=== PATIENT | female | born 1980 | race Asian ===

== ENCOUNTER 2019-11-16 20:14 | Outpatient (CLI) | payer SELFPAY | END 2019-11-16 23:59 | disposition critical access hospital (66) | LOC: EMS 20:14 | PROVIDERS: ATTEND Surgery | DX: S09.93XA Unspecified injury of face, initial encounter (principal); M54.2 Cervicalgia; Y04.2XXA Assault by strike against or bumped into by another person, initial encounter; Z72.89 Other problems related to lifestyle | CPT/HCPCS: A0425; A0429 ==

== ENCOUNTER 2019-11-16 20:51 | Emergency (ER) | payer SELFPAY ==
[2019-11-16 21:07] VITALS: BP 166/128
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
== END 2019-11-17 00:37 | disposition home or self-care (01) ==
LOC: ED 20:51
DX: T76.11XA Adult physical abuse, suspected, initial encounter (principal); S06.9X9A Unspecified intracranial injury with loss of consciousness of unspecified duration, initial encounter; S00.83XA Contusion of other part of head, initial encounter; S00.81XA Abrasion of other part of head, initial encounter; Y04.2XXA Assault by strike against or bumped into by another person, initial encounter; Y92.009 Unspecified place in unspecified non-institutional (private) residence as the place of occurrence of the external cause; F10.929 Alcohol use, unspecified with intoxication, unspecified; M50.322 Other cervical disc degeneration at C5-C6 level
CPT/HCPCS: 70450; 72125; 99283; 99284

== ENCOUNTER 2021-04-14 09:06 | Day surgery (SDC) | payer OTHER ==
[2021-04-14 09:51] LABS: BASOPHILS # (AUTO) 0.1 10^3/uL (0.0-0.1); BASOPHILS % (AUTO) 0.3 %; EOSINOPHILS % (AUTO) 0.1 %; HCT - HEMATOCRIT 41.2 % (37.0-47.0); HGB - HEMOGLOBIN 13.7 g/dL (12.0-16.0); LYMPHOCYTES # (AUTO) 0.7 10^3/uL (1.5-3.5); MEAN CORPUSCULAR HGB CONC 33.3 g/dL (32.0-36.0); MEAN CORPUSCULAR VOLUME 96.3 fL (81.0-99.0); MEAN PLATELET VOLUME 9.2 fL (7.9-10.8); MONOCYTES # (AUTO) 0.7 10^3/uL (0.0-1.0); MONOCYTES % (AUTO) 3.7 %; NEUTROPHILS # (AUTO) 16.7 10^3/uL (1.5-6.6); NEUTROPHILS % (AUTO) 91.4 %; PLT - PLATELET COUNT 314 10^3/uL (130-450); RED BLOOD COUNT 4.28 10^6/uL (4.20-5.40); RED CELL DISTRIBUTION WIDTH 12.9 % (12.0-15.0); WHITE BLOOD COUNT 18.3 x10^3/uL (4.8-10.8)
[2021-04-14 10:05] LABS: ALBUMIN 4.4 g/dL (3.2-5.5); ALBUMIN/GLOBULIN RATIO 1.2 (1.0-2.2); BILIRUBIN,TOTAL 1.2 mg/dL (0.2-1.0); CALCIUM 9.2 mg/dL (8.5-10.3); CREATININE 0.5 mg/dL (0.4-1.0); POTASSIUM 3.7 mmol/L (3.5-5.0); TOTAL PROTEIN 8.1 g/dL (6.7-8.2)
[2021-04-14 10:35] LABS: BILIRUBIN,URINE NEGATIVE (NEGATIVE); GLUCOSE, URINE (UA) NEGATIVE (NEGATIVE); KETONES,URINE (UA) NEGATIVE (NEGATIVE); LEUKOCYTE ESTERASE, URINE NEGATIVE (NEGATIVE); NITRITE,URINE NEGATIVE (NEGATIVE); OCCULT BLOOD,URINE NEGATIVE (NEGATIVE); PROTEIN,URINE NEGATIVE (NEGATIVE); UROBILINOGEN,URINE 0.2 (NORMAL) E.U./dL (NORMAL)
[2021-04-14 10:36] LABS: CLARITY,URINE CLEAR (CLEAR); HCG UR QUAL NEGATIVE
--- NOTE | 2021-04-14 10:45 | ED Physician Documentation ---
PD HPI ABD PAIN - Stated complaint Stated Complaint: ABD PX,VOMITING,DIZZY - Chief complaint Chief Complaint: Abd Pain - History obtained from History obtained from: Patient - History of Present Illness Timing - onset: Last night (onset about 2:30 of mid to upper abd pain with nausea and some vomiting. Mild loose stool.) Timing - duration: Hours (7) Timing - details: Gradual onset, Still present Quality: Cramping, Aching, Pain Location: Epigastric, Periumbilical Radiation: Lower back. No: Chest, Left flank, Right flank Improved by: No: Vomiting Worsened by: Eating, Position (walking hurts more). No: Breathing, Palpation Associated symptoms: Nausea, Vomiting (couple times). No: Fever, Diarrhea (but loose BM this morning), Constipation Similar symptoms before: Has not had sx before Recently seen: Not recently seen Review of Systems Constitutional: denies: Fever, Chills Nose: denies: Rhinorrhea / runny nose, Congestion Throat: denies: Sore throat Respiratory: denies: Cough GI: reports: Abdominal Pain, Nausea. denies: Abdominal Swelling, Constipation : denies: Dysuria, Frequency, Discharge Skin: denies: Rash, Lesions PD PAST MEDICAL HISTORY - Past Medical History Cardiovascular: None Respiratory: None Neuro: None Endocrine/Autoimmune: None - Past Surgical History Past Surgical History: No - Present Medications Home Medications: Ambulatory Orders Medication Instructions Recorded Confirmed No Known Home Medications 04/14/21 04/14/21 - Allergies Allergies/Adverse Reactions: Allergies Allergy/AdvReac Type Severity Reaction Status Date / Time No Known Drug Allergies Allergy Verified 04/14/21 09:27 - Social History Does the pt smoke?: No Smoking Status: Never smoker PD ED PE NORMAL - Vitals Vital signs reviewed: Yes - General General: Alert and oriented X 3, Well developed/nourished - Neck Neck: Supple, no meningeal sign, No adenopathy - Cardiac Cardiac: RRR, No murmur - Respiratory Respiratory: Clear bilaterally - Abdomen Abdomen: Normal bowel sounds, Soft, Non distended, No organomegaly, Other (There is tenderness in the supraumbilical to epigastric area. Mild tenderness in the right upper quadrant. Lower abdomen is actually not tender. No percussion or rebound tenderness) - Female Female : Deferred - Rectal Rectal: Deferred - Back Back: No CVA TTP - Derm Derm: Normal color, Warm and dry - Neuro Neuro: Alert and oriented X 3, No motor deficit, Normal speech Results - Vitals Vitals: Vital Signs - 24 hr 04/14/21 04/14/21 04/14/21 09:18 11:12 11:57 Temperature 37.2 C 37.2 C 36.8 C Heart Rate 80 83 80 Respiratory 16 16 18 Rate Blood Pressure 139/96 H 128/87 H 105/72 O2 Saturation 100 100 100 04/14/21 04/14/21 12:53 13:54 Temperature 36 C L Heart Rate 90 74 Respiratory 16 16 Rate Blood Pressure 140/94 H O2 Saturation 95 100 Oxygen O2 Source Room air - Labs Labs: Laboratory Tests 04/14/21 04/14/21 04/14/21 09:41 09:41 10:22 WBC 18.3 H RBC 4.28 Hgb 13.7 Hct 41.2 MCV 96.3 MCH 32.0 H MCHC 33.3 RDW 12.9 Plt Count 314 MPV 9.2 Neut # (Auto) 16.7 H Lymph # (Auto) 0.7 L [place] # (Auto) 0.7 Eos # (Auto) 0.0 Baso # (Auto) 0.1 Absolute Nucleated RBC 0.00 Nucleated RBC % 0.0 Sodium 134 L Potassium 3.7 Chloride 100 L Carbon Dioxide 24 Anion Gap 10.0 BUN 9 Creatinine 0.5 Estimated GFR (MDRD) 137 Glucose 125 H Calcium 9.2 Total Bilirubin 1.2 H AST 17 ALT 13 Alkaline Phosphatase 43 Total Protein 8.1 Albumin 4.4 Globulin 3.7 Albumin/Globulin Ratio 1.2 Lipase 25 Urine Color YELLOW Urine Clarity CLEAR Urine pH 6.0 Ur Specific [place] 1.025 Urine Protein NEGATIVE Urine Glucose (UA) NEGATIVE Urine Ketones NEGATIVE Urine Occult Blood NEGATIVE Urine Nitrite NEGATIVE Urine Bilirubin NEGATIVE Urine Urobilinogen 0.2 (NORMAL) Ur Leukocyte Esterase NEGATIVE Ur Microscopic Review NOT INDICATED Urine Culture Comments NOT INDICATED Urine HCG, Qual NEGATIVE - Rads (name of study) abd U/S Radiology: Prelim report reviewed (Gallstones without any signs of cholecystitis.), See rad report abd CT Radiology: Prelim report reviewed (Enlarged appendix with multiple appendicoliths. No signs of abscess.), See rad report PD MEDICAL DECISION MAKING - ED course Complexity details: reviewed results, re-evaluated patient (Still having pain that seems more supraumbilical at this time. White count is elevated at 18,000. Ultrasound did not show any gallbladder cholecystitis (some gallstones incidental). Will check CT scan.), considered differential (Pain and tenderness in the mid to upper abdomen mostly. Will check initially gallbladder and pancre as. Consider gastritis.), d/w patient Departure - Departure Disposition: ED Transfer to [facility] Clinical Impression: Acute appendicitis Qualifiers: Acute appendicitis type: unspecified acute appendicitis type Qualified Code(s): K35.80 - Unspecified acute appendicitis Abdominal pain Qualifiers: Abdominal location: upper abdomen, unspecified Qualified Code(s): R10.10 - Upper abdominal pain, unspecified Condition: Stable Record reviewed to determine appropriate education?: Yes
[2021-04-14] MEDS ORDERED: FAMOTIDINE 20 MG/2 ML VIAL IVP STA (11:02)
[2021-04-14] MEDS ORDERED: SODIUM CHLORIDE 0.9% 1,000 ML IV STA ×2 (11:02→13:50)
[2021-04-14] MEDS ORDERED: ONDANSETRON 4 MG/2 ML VIAL IVP STA (11:02)
[2021-04-14] MEDS ORDERED: HYDROmorphone 1 MG/ML CARPUJECT IVP STA ×3 (11:02→13:50)
--- NOTE | 2021-04-14 12:01 | Ultrasound Report ---
PROCEDURE: Abdomen Limited INDICATIONS: upper abd pain and vomiting TECHNIQUE: Real-time focused scanning was performed of the abdomen, with image documentation. COMPARISON: None FINDINGS: Liver is normal in size and homogeneous in echotexture. Liver is diffusely echogenic. No focal hepati c mass lesions. Multiple small gallstones. No gallbladder wall thickening with gallbladder wall measuring 2.3 mm. No pericholecystic fluid. No sonographic Ruelas sign. Biliary tree is at the upper limits of normal with common bile duct measuring 6.4 mm. Pancreas is sonographically normal. Limited evaluation of the right kidney is sonographically normal. IMPRESSION: 1. Cholelithiasis without sonographic evidence of cholecystitis. If there is continued clinical delia rn for cholecystitis, nuclear medicine HIDA scan should be considered for further evaluation. 2. Common bile duct the upper limits of normal in diameter. Recommend correlation with laboratory anthony a to exclude early biliary obstruction. 3. Echogenic liver. Finding could relate represents fatty infiltration, however finding is nonspecifi c and other etiologies including hepatic cirrhosis can produce a similar appearance. Recommend correl ation with clinical and laboratory data. Reviewed by: Etta Otero MD, PhD on 04/14/2021 11:59 AM PDT Approved by: Etta Otero MD, PhD on 04/14/2021 11:59 AM PDT Station ID: [id number]
[2021-04-14] MEDS ORDERED: MAG HYDROX/AL HYDROX/SIMETH 30 ML UDC PO STA (12:36)
[2021-04-14] MEDS ORDERED: LIDOCAINE VISCOUS 2% 15 ML UDC MM STA (12:36)
[2021-04-14] MEDS ORDERED: IOPAMIDOL-300 100 ML VIAL ONE (12:44)
--- NOTE | 2021-04-14 13:20 | CT Report ---
PROCEDURE: Abdomen/Pelvis W INDICATIONS: upper/mid abd pain CONTRAST: IV CONTRAST: Isovue 300 ml: 100 PO CONTRAST: *NO PO CONTRAST TECHNIQUE: After the administration of intravenous contrast, 5 mm thick sections acquired from the diaphragms to the symphysis. 5 mm thick coronal and sagittal reformats were acquired. For radiation dose reducti on, the following was used: automated exposure control, adjustment of mA and/or kV according to mateo ent size. COMPARISON: None. FINDINGS: Image quality: Excellent. ABDOMEN: Lung bases: Lung bases are clear. Heart size is normal. Solid organs: Liver and spleen are normal in size and enhancement. Gallbladder is within normal weber its Biliary system is non dilated. Pancreas enhances normally. No adrenal nodules. Kidneys demons trate normal size and enhancement, without hydronephrosis. Peritoneum and bowel: Bowel loops demonstrate normal wall thickness and caliber. No free air. Trac e free fluid noted in the cul-de-sac of the pelvis. The appendix is enlarged to 1.1 cm. There is a 0. 8 cm appendicolith in the base of the appendix. There are multiple appendicoliths in the distal appen elmo ranges in size from 0.4-0.7 cm. Nodes and vessels: No retroperitoneal or mesenteric adenopathy by size criteria. Aorta and inferior vena cava are normal in size. Miscellaneous: Small fat-containing umbilical hernia. PELVIS: Genitourinary: Bladder wall thickness is normal. 1.9 cm involuting right ovarian cyst. Miscellaneous: No inguinal hernias or adenopathy. Bones: No suspicious bony lesions. No vertebral body compression fractures. Spine degenerative disc disease and facet arthropathy are noted. IMPRESSION: 1. Acute appendicitis. Multiple appendicoliths noted. 2. No free intraperitoneal air. Trace free fluid noted in the cul-de-sac the pelvis which is within p hysiologic limits. Reviewed by: Etta Otero MD, PhD on 04/14/2021 1:19 PM PDT Approved by: Etta Otero MD, PhD on 04/14/2021 1:19 PM PDT Station ID: [id number]
[2021-04-14] MEDS ORDERED: PIPERACILLIN/TAZOBACTAM 3.375 GM in SODIUM CHLORIDE 0.9% MINIBAG 100 ML IV STA (13:50)
[2021-04-14] MEDS ORDERED: IOPAMIDOL-300 100 ML VIAL IVP ONE (14:05)
--- NOTE | 2021-04-14 15:05 | SURGERY HX AND PHYSICAL(T) ---
Surgical History & Physical - Chief Complaint/HPI Chief Complaint: abdominal pain, localizing ro RLQ History of Present Illness: 41 yo female had onset of abdominal pain associated with N/V at 2 am this morning. Pain has persisted. No similar pain. LMP last month. - PMH/PSH/Social Hx Neurological History: None Eyes, Ears, Nose, Throat: None Cardiovascular: None Respiratory: None Endocrine/Autoimmune: None Gastrointestinal: None FOUNDATION COORDINATOR: None Is Patient ?: No Urinary: None Musculoskeletal: None Smoking Status: Never smoker - Home Meds and Allergies Home Medications: No Known Home Medications 04/14/21 Allergies/Adverse Reactions: Allergies Allergy/AdvReac Type Severity Reaction Status Date / Time No Known Drug Allergies Allergy Verified 04/14/21 09:27 - Review of Systems Constitutional: No: Fatigue, Fever, Weakness Gastrointestinal: Nausea, Vomiting (Onset early this morning) - Vital Signs Heart Rate: 74 Blood Pressure: 140/94 Temperature: 36 C Respiratory Rate: 16 O2 Saturation: 100 Weight (kg): 51.71 kg Height: 1.63 m - Physical Exam General Appearance: positive: No acute distress Eyes Bilatera: positive: Normal inspection ENT: positive: ENT inspection nml Neck: positive: Nml inspection Respiratory: positive: No respiratory distress Cardiovascular: positive: Regular rate & rhythm Abdomen: positive: Tenderness (RLQ >LLQ, no generalized tenderness, mild guarding, no rigidity) Skin: positive: Color nml Neurologic/Psychiatric: positive: Oriented x3 - Patient Review Patient Review: Problems were reviewed with the patient during this visit. Medications were reviewed with the patient during this visit. Allergies were reviewed this patient during this visit. Pertinent Tests Reviewed: All pertitent test for this patient were reviewed. - Assessment & Plan Assessment and Plan: Urine HCG negative Acute appendicitis, confirmed by CT scan showing distended appendix with fecaliths. Plan: Laparoscopic appendectomy. IV Zosyn given in ER.
[2021-04-14] MEDS ORDERED: BUPIVACAINE 0.5%-EPI 1:200000 PF 30 ML VIAL ONE (15:21)
[2021-04-14] MEDS ORDERED: BUPIVACAINE 0.5%-EPI 1:200000 PF 30 ML VIAL SUBQ ONE ×2 (15:29)
[2021-04-14] MEDS ORDERED: ROCURONIUM 50 MG/5 ML VIAL ONE (15:31)
[2021-04-14] MEDS ORDERED: LIDOCAINE-MPF 2% 5 ML VIAL ONE (15:31)
[2021-04-14] MEDS ORDERED: MIDAZOLAM 2 MG/2 ML VIAL ONE (15:31)
[2021-04-14] MEDS ORDERED: fentaNYL 100 MCG/2 ML VIAL ONE (15:31)
[2021-04-14] MEDS ORDERED: PROPOFOL 200 MG/20 ML VIAL IVP ONE (15:31)
--- NOTE | 2021-04-14 15:57 | ANESTHESIA ---
Pre-Anesthesia VS, & Labs - Diagnosis appendicitis - Procedure laparoscopic appendectomy Vital Signs: Temp Pulse Resp BP Pulse Ox 36 C L 74 16 140/94 H 100 04/14/21 15:12 04/14/21 15:12 04/14/21 15:12 04/14/21 15:12 04/14/21 15:12 Height: 5 ft 4 in Weight (kg): 51.71 kg Body Mass Index: 19.5 BMI Classification: Healthy weight - NPO >8 hours - Is Patient ?: No - Lab Results Current Lab Results: Laboratory Tests 04/14/21 09:41: Sodium 134 L, Potassium 3.7, Chloride 100 L, Carbon Dioxide 24, Anion Gap 10.0, BUN 9, Creatinine 0.5, Estimated GFR (MDRD) 137, Glucose 125 H, Calcium 9.2, Total Bilirubin 1.2 H, AST 17, ALT 13, Alkaline Phosphatase 43, Total Protein 8.1, Albumin 4.4, Globulin 3.7, Albumin/Globulin Ratio 1.2, Lipase 25 04/14/21 09:41: WBC 18.3 H, RBC 4.28, Hgb 13.7, Hct 41.2, MCV 96.3, MCH 32.0 H, MCHC 33.3, RDW 12.9, Plt Count 314, MPV 9.2, Neut # (Auto) 16.7 H, Lymph # (Auto) 0.7 L, [place] # (Auto) 0.7, Eos # (Auto) 0.0, Baso # (Auto) 0.1, Absolute Nucleated RBC 0.00, Nucleated RBC % 0.0 Fish Bones: 04/14/21 09:41 04/14/21 09:41 Home Medications and Allergies Home Medications: Ambulatory Orders No Known Home Medications 04/14/21 Active Medications Sodium Chloride (Normal Saline 0.9%) 1,000 mls @ 150 mls/hr IV .Q6H40M STA Stop: 04/14/21 20:29 Last Admin: 04/14/21 14:51 Dose: 150 mls/hr Documented by: No Known Home Medications 04/14/21 Allergies/Adverse Reactions: Allergies Allergy/AdvReac Type Severity Reaction Status Date / Time No Known Drug Allergies Allergy Verified 04/14/21 09:27 Anes History & Medical History - Anesthetic History Anesthesia Complications: reports: No previous complications - Medical History Cardiovascular: reports: None Pulmonary: reports: None Gastrointestinal: reports: None Urinary: reports: None Neuro: reports: None Musculoskeletal: reports: None Endocrine/Autoimmune: reports: None Smoking Status: Never smoker History of Cancer?: No Exam General: Alert Dental: WNL Mouth Opening: Greater than 4 Fingerbreadths Neck Mobility: Normal Mallampati classification: I Respiratory: Lungs clear Cardiovascular: Regular rate Plan Anesthesia Type: General Consent for Procedure(s) Verified and Reviewed: Yes Code Status: Attempt Resuscitation ASA classification: 1-Healthy patient Is this case an emergency?: Yes
[2021-04-14] MEDS ORDERED: METOCLOPRAMIDE 10 MG/2 ML VIAL IVP PRN (15:59)
[2021-04-14] MEDS ORDERED: ONDANSETRON 4 MG/2 ML VIAL IVP PRN ×2 (15:59→17:16)
[2021-04-14] MEDS ORDERED: NALOXONE 0.4 MG/ML VIAL IVP PRN (15:59)
[2021-04-14] MEDS ORDERED: ePHEDrine 50 MG/ML VIAL IVP PRN (15:59)
[2021-04-14] MEDS ORDERED: MORPHINE 2 MG/ML CARPUJECT IVP PRN (15:59)
[2021-04-14] MEDS ORDERED: HYDROmorphone 0.5 MG/0.5 ML SYRINGE IVP PRN (15:59)
[2021-04-14] MEDS ORDERED: ATROPINE ABBOJECT 1 MG/10 ML SYRINGE IVP PRN (15:59)
[2021-04-14] MEDS ORDERED: fentaNYL 100 MCG/2 ML VIAL IVP PRN (15:59)
[2021-04-14] MEDS ORDERED: LACTATED RINGERS 1,000 ML IV SCH (16:00)
[2021-04-14] MEDS ORDERED: ACETAMINOPHEN 1,000 MG/100 ML 100 ML IV ONE (16:06)
[2021-04-14] MEDS ORDERED: DEXAMETHASONE 4 MG/ML VIAL ONE (16:38)
[2021-04-14] MEDS ORDERED: ONDANSETRON 4 MG/2 ML VIAL ONE (16:38)
[2021-04-14] MEDS ORDERED: KETOROLAC 30 MG/ML VIAL ONE (16:38)
[2021-04-14] MEDS ORDERED: SUGAMMADEX 200 MG/2 ML VIAL IVP ONE (16:42)
--- NOTE | 2021-04-14 17:00 | OPERATIVE REPORT ---
Operative Report - General Planned Procedure: Laparoscopic appendectomy Pre-Op Diagnosis: Acute appendicitis Procedure Performed: Laparoscopic appendectomy Post Op Diagnosis: Acute suppurative appendicitis - Procedure Note Primary Surgeon: John Stubbs Secondary Surgeon: none Anesthesia Provider: Joseph Chase CRNA Anesthesia Technique: General ET tube Estimated Blood Loss (mL): 25 Indications: RLQ abdominal pain onset 12 hours before ER visit Findings: Acute suppurative appendicitis - Other Other Information/Narrative: The patient was taken to the operating room where general anesthesia was induced, the patient was intubated, the abdomen was prepped with ChloraPrep and sterilely draped in usual fashion. A timeout was completed and half percent Marcaine with epinephrine was injected at the umbilicus. Scalpel was used to make a transverse incision and Metzenbaum scissors were used to divide peritoneum and a 5 mm trocar was placed atraumatically with direct visualization. CO2 was insufflated in the abdomen and laparoscopic camera was used to visualize the appendix with findings as above. The anterior abdominal wall was visualized as a 12 mm trocar was placed in the left lower quadrant and a 5 mm trocar in the right lower quadrant. Local anesthetic was used for both incisions. The appendix was quite large and long and the mesentery was divided with 2 applications of a vascular 45 mm Endo STEPHANIE. The base of the appendix was then exposed and standard Endo STEPHANIE was fired across the the appendix at its origin. The area of dissection was irrigated with saline and aspirated dry. There was good hemostasis. The appendix was placed in an Endopouch and withdrawn through the 12 mm trocar site. All CO2 was desufflated from the abdomen and the trochars were removed. 2-0 Vicryl on a UR needle was used to close fascia at the umbilicus and in the left lower quadrant. Skin incisions were closed with running subcuticular 4-0 Monocryl and Dermabond. The patient was extubated and taken to recovery in stable condition.
[2021-04-14] MEDS ORDERED: LACTATED RINGERS 1,000 ML IV ONE (17:23)
--- NOTE | 2021-04-14 17:25 | ANESTHESIA POST OP EVALUATION ---
Anesthesia Post Eval - Post Anesthesia Eval Vitals: Last Vital Signs Temp 36.4 C L 04/14/21 17:20 Pulse 92 04/14/21 17:20 Resp 13 04/14/21 17:20 BP 130/82 H 04/14/21 17:20 Pulse Ox 100 04/14/21 17:20 CV Function Including HR & BP: Stable Pain Control: Satisfactory Nausea & Vomiting: Negative Mental Status: Baseline Respiratory Status: Airway Patent Hydration Status: Satisfactory Anesthesia Complications: None
[2021-04-14] MEDS: oxyCODONE 5 MG TABLET PO PRN (19:50)
[2021-04-15] MEDS: oxyCODONE 5 MG TABLET PO PRN ×2 (07:39)
[2021-04-15 07:45] VITALS: BP 99/60
--- NOTE | 2021-04-15 08:02 | DISCHARGE SUMMARY ---
"Discharge Summary Admit Date: 04/14/21 Discharge Date: 04/15/21 Discharging Provider: John Code Status: Attempt Resuscitation Condition at Discharge: Stable Discharge Disposition: 01 Home, Self Care - DIAGNOSES Admission Diagnoses: Acute Appendicitis Discharge Diagnoses with Status of Each Condition: Acute appendicitis- resolved Cholelithiasis - HPI History of Present Illness: 41 yo female admitted with acute appendicitis and taken to OR for uncomplicated laparoscopic appendectomy. Post op course unremarkable, discharged within 24 hours. - CONSULTS | PROCEDURES Procedures: Laparoscopic appendectomy - HOSPITAL COURSE Hospital Course: Tolerating diet, voiding, ambulatory after lap appendectomy. Pain controlled with oxycodone. - ALLERGIES Allergies/Adverse Reactions: Allergies Allergy/AdvReac Type Severity Reaction Status Date / Time No Known Drug Allergies Allergy Verified 04/14/21 09:27 - MEDICATIONS Home Medications: Ambulatory Orders Medication Instructions Recorded Confirmed No Known Home Medications 04/14/21 04/14/21 - PHYSICAL EXAM AT DISCHARGE General Appearance: positive: No acute distress Abdomen: positive: Non-tender, Other (incisions healing well) - LABS Result Diagrams: 04/14/21 09:41 04/14/21 09:41 - FOLLOW UP Follow Up: Surgery clinic in one week. No heavy lifting or straining for one week. OK to shower tomorrow."
--- NOTE | 2021-04-15 08:11 | Discharge Plan ---
Discharge Plan Problem Reviewed?: Yes Disposition: Home, Self Care Condition: Stable Prescriptions: oxyCODONE [Roxicodone] 5 mg PO Q4HR PRN #15 tablet PRN Reason: Pain Diet: Regular Activity Restrictions: Additional Comments (No heavy lifting for one week) Shower Restrictions: Yes (Start tomorrow) Driving Restrictions: Yes (Do not drive after taking pain medication) Instruction Topics: Appendectomy Laparoscopic Dc Additional Instructions or Follow Up instructions: Follow up at Surgery clinic in one week No Smoking: If you smoke, Please STOP! Call for help.
== END 2021-04-15 10:30 | disposition home or self-care (01) ==
LOC: ED 09:06 → SDS 14:45 → MS2 17:30 → SDS 04-15 10:30
PROVIDERS: ATTEND Surgery
PROC: 0DTJ4ZZ Resection of Appendix, Percutaneous Endoscopic Approach (ICD-10-PCS; principal; 2021-04-14 15:30)
DX: K35.80 Unspecified acute appendicitis (principal)
CPT/HCPCS: 36415; 44970; 74177; 76705; 80053; 81003; 81025; 83690; 85025; 96365; 96375; 96376; 99284; 99285; A9270; J0131; J1170; J7120; Q9967; 81001; 87086

== ENCOUNTER 2024-11-24 11:58 | Inpatient (IN) ==
--- NOTE | 2024-11-24 12:34 | XRAY Report ---
PROCEDURE: XR Chest 2V INDICATIONS: cough TECHNIQUE: 2 views of the chest were acquired. COMPARISON: None. FINDINGS: Surgical changes and devices: None. Lungs and pleura: No pleural effusions or pneumothorax. No consolidation. Mediastinum: Mediastinal contours appear normal. Heart size is normal. Bones and chest wall: No suspicious bony lesions. Overlying soft tissues appear unremarkable. IMPRESSION: No acute cardiopulmonary process. Reviewed by: Jerrell Fuchs MD on 11/24/2024 11:33 AM SHERIE Approved by: Jerrell Fuchs MD on 11/24/2024 11:33 AM SHERIE Station ID: [id number]
[2024-11-24 12:40] LABS: BASOPHILS # (AUTO) 0.1 10^3/uL (0.0-0.1); BASOPHILS % (AUTO) 0.7 %; EOSINOPHILS # (AUTO) 0.1 10^3/uL (0.0-0.7); EOSINOPHILS % (AUTO) 0.4 %; HCT - HEMATOCRIT 36.5 % (37.0-47.0); HGB - HEMOGLOBIN 12.5 g/dL (12.0-16.0); LYMPHOCYTES # (AUTO) 1.7 10^3/uL (1.5-3.5); LYMPHOCYTES % (AUTO) 12.2 %; MEAN CORPUSCULAR HEMOGLOBIN 34.2 pg (27.0-31.0); MEAN CORPUSCULAR HGB CONC 34.2 g/dL (32.0-36.0); MEAN CORPUSCULAR VOLUME 99.7 fL (81.0-99.0); MEAN PLATELET VOLUME 10.2 fL (7.9-10.8); MONOCYTES # (AUTO) 2.8 10^3/uL (0.0-1.0); MONOCYTES % (AUTO) 20.9 %; NEUTROPHILS # (AUTO) 8.7 10^3/uL (1.5-6.6); NEUTROPHILS % (AUTO) 64.4 %; NRBC ABSOLUTE COUNT (AUTO) 0.04 x10^3/uL; NUCLEATED RED BLOOD CELLS AUTO 0.3 /100WBC; PLT - PLATELET COUNT 347 10^3/uL (130-450); RED BLOOD COUNT 3.66 10^6/uL (4.20-5.40); RED CELL DISTRIBUTION WIDTH 13.8 % (12.0-15.0); WHITE BLOOD COUNT 13.5 x10^3/uL (4.8-10.8)
[2024-11-24 12:49] LABS: SLIDE REVIEW? Indicated
[2024-11-24 12:56] LABS: POTASSIUM 2.5 mmol/L (3.5-4.5)
[2024-11-24 12:57] LABS: ALBUMIN 4.6 g/dL (3.2-5.5); ALBUMIN/GLOBULIN RATIO 1.1 (1.0-2.2); CALCIUM 9.5 mg/dL (8.5-10.3); CREATININE 0.6 mg/dL (0.6-1.3); TOTAL PROTEIN 8.9 g/dL (6.4-8.9)
[2024-11-24 12:59] LABS: RBC MORPHOLOGY (MULTIPLE) 2+ ANISOCYTOSIS (NORMAL)
[2024-11-24 13:14] LABS: B. PARAPERTUSSIS- RESP PCR PAN NOT DETECTED; B. PERTUSSIS- RESP PCR PANEL NOT DETECTED; C. PNEUMONIAE- RESP PCR PANEL NOT DETECTED; CORONAVIRUS 229E-RESP PCR NOT DETECTED; CORONAVIRUS HKU1-RESP PCR NOT DETECTED; CORONAVIRUS NL63-RESP PCR NOT DETECTED; CORONAVIRUS OC43-RESP PCR NOT DETECTED; HUMAN METAPNEUMOVIRUS NOT DETECTED; INFLUENZA A- RESP PCR PANEL NOT DETECTED; INFLUENZA B - RESP PCR PANEL NOT DETECTED; M. PNEUMONIAE- RESP PCR PANEL NOT DETECTED; PARAINFLUENZA VIRUS 1 NOT DETECTED; PARAINFLUENZA VIRUS 2 NOT DETECTED; PARAINFLUENZA VIRUS 4 NOT DETECTED; RHINOVIRUS/ENTEROVIRUS NOT DETECTED; RSV- RESP PCR PANEL NOT DETECTED; SARS-CoV-2 -RESP PCR PANEL NOT DETECTED
[2024-11-24 13:17] LABS: KETONES, SERUM (ACETEST) SMALL (NEGATIVE)
--- NOTE | 2024-11-24 13:18 | ED Physician Documentation ---
History of Present Illness Stated complaint Stated Complaint: COUGH/V/BLOODY NOSE Chief complaint Chief Complaint: General Additonal information Additional information: 44-year-old female with neuropathy and alcohol dependence presents to emergency department for cough, Flulike symptoms that have been ongoing now for about 5 to 6 days. Patient endorses and nausea vomiting no fevers or chills persistent dry cough not coughing anything up and generalized malaise. She has never gone through alcohol withdrawal symptoms before in the past. No history of alcohol withdrawal seizures. She denies any abdominal pain no recent travel no shortness of breath. Meds/Allgy Home Medications Ambulatory Orders Medication Instructions Recorded Confirmed cyclobenzaprine 10 mg tablet 10 mg PO TID PRN muscle spasm 11/24/24 11/24/24 gabapentin 300 mg capsule 300 mg PO BID 11/24/24 11/24/24 Allergies Allergies Allergy/AdvReac Type Severity Reaction Status Date / Time No Known Drug Allergies Allergy Verified 11/24/24 12:04 PFSH Active Problems All Active Problems (Updated 11/24/24 @ 21:34 by Thuan Archibald DNP) Hypomagnesemia (Acute) Acute hypokalemia (Acute) Acute hyponatremia (Acute) Hepatic steatosis (Acute) Alcohol dependence (Acute) Alcoholic ketoacidosis (Acute) Neuropathy (Acute) Alcoholism with alcohol dependence (Acute) Alcoholic ketoacidosis (Acute) Surgical History Surgical History (Updated 11/24/24 @ 13:40 by Canelo Hazel RN) Hx of appendectomy Social History Social History (Updated 11/24/24 @ 13:40 by Canelo Hazel RN) Smoking Status: Never smoker Do you dip or chew tobacco?: No Do you vape?: No Living arrangement: At home Relationship: Level: Independent Do you feel safe in your home environment?: Yes Suffered physical, verbal, emotional, or financial abuse?: No ETOH Use: None and Liquor Frequency: Daily Number of Amount/day: 2 Substance Use: denies use Exam Constitutional abnormal general appearance (disheveled) and (frail appearing), no apparent distress, abnormal body habitus (thin) and (underweight), no limitations and alert HENMT normocephalic Eyes PERRL Chest inspection of chest normal Respiratory breath sounds equal bilaterally, normal respiratory effort and clear to auscultation bilaterally Cardiovascular heart rate abnormal (tachycardic) Gastrointestinal abdomen normal to inspection, abdomen soft to palpation, nontender to palpation and nontender to percussion Genitourinary no CVA tenderness Extremities normal to inspection 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, no movement abnormality noted, no focal motor deficit noted, no sensory deficits noted, gait normal, speech normal, coordination normal, no pronator drift noted, no fasciculations noted and GCS 15 Skin skin color abnormal (pale) and jaundice noted (jaundice) Results Vitals Vitals: Vital Signs - 24 hr 11/24/24 12:02 11/24/24 13:41 11/24/24 14:40 Temperature 36.8 C Temperature Source Temporal Artery Scan Pulse Rate 120 H 126 H 128 H Respiratory Rate 20 16 21 Blood Pressure 143/108 H 135/92 H 155/100 H O2 Saturation 100 100 100 O2 Source Room air Room air Room air Pain Intensity 6 7 0 11/24/24 16:13 11/24/24 17:09 11/24/24 18:42 Temperature 36.4 C L Temperature Source Temporal Artery Scan Pulse Rate 113 H 108 H 110 H Respiratory Rate 16 26 H 21 Blood Pressure 151/99 H 130/90 131/89 H O2 Saturation 100 100 100 O2 Source Room air Room air Room air Pain Intensity 6 0 7 11/24/24 19:30 Temperature Temperature Source Pulse Rate 77 Respiratory Rate 16 Blood Pressure 145/79 H O2 Saturation 95 O2 Source Room air Pain Intensity Oxygen O2 Source Room air Labs Labs: Laboratory Tests 11/24/24 11/24/24 11/24/24 12:07 12:32 13:18 WBC 13.5 H RBC 3.66 L Hgb 12.5 Hct 36.5 L MCV 99.7 H MCH 34.2 H MCHC 34.2 RDW 13.8 Plt Count 347 MPV 10.2 Neut # (Auto) 8.7 H Lymph # (Auto) 1.7 [place] # (Auto) 2.8 H Eos # (Auto) 0.1 Baso # (Auto) 0.1 Absolute Nucleated RBC 0.04 Nucleated RBC % 0.3 Manual Slide Review Indicated RBC Morph Micro Appear 2+ ANISOCYTOSIS PT INR VBG pH 7.401 VBG pCO2 24.6 L VBG pO2 35.1 VBG HCO3 15.4 L VBG Total CO2 16.2 L VBG O2 Saturation 44.0 L VBG Base Excess -9.6 L Sodium 127 L Potassium 2.5 L* Chloride 85 L Carbon Dioxide 16 L Anion Gap 26.0 H BUN 3 L Creatinine 0.6 Estimated GFR (MDRD) 109 Glucose 154 H Lactic Acid Calcium 9.5 Phosphorus 2.2 L Magnesium 1.2 L Total Bilirubin 4.0 H AST 166 H ALT 56 Alkaline Phosphatase 133 H Total Protein 8.9 Albumin 4.6 Globulin 4.3 H Albumin/Globulin Ratio 1.1 Lipase 58 Nasal Adenovirus (PCR) NOT DETECTED Nasal B. parapertussis DNA (PCR) NOT DETECTED Nasal Coronavir 229E PCR NOT DETECTED Nasal Coronavir HKU1 PCR NOT DETECTED Nasal Coronavir NL63 PCR NOT DETECTED Nasal Coronavir OC43 PCR NOT DETECTED Nasal Enterovir/Rhinovir PCR NOT DETECTED Nasal Influenza B PCR NOT DETECTED Nasal Influenza A PCR NOT DETECTED Nasal Parainfluen 1 PCR NOT DETECTED Nasal Parainfluen 2 PCR NOT DETECTED Nasal Parainfluen 3 PCR NOT DETECTED Nasal Parainfluen 4 PCR NOT DETECTED Nasal RSV (PCR) NOT DETECTED Nasal B.pertussis DNA PCR NOT DETECTED Nasal C.pneumoniae (PCR) NOT DETECTED Thiago Human Metapneumo PCR NOT DETECTED Nasal M.pneumoniae (PCR) NOT DETECTED Nasal SARS-CoV-2 (PCR) NOT DETECTED Ethyl Alcohol < 10.0 Serum Ketones SMALL H 11/24/24 11/24/24 17:03 20:53 WBC RBC Hgb Hct MCV MCH MCHC RDW Plt Count MPV Neut # (Auto) Lymph # (Auto) [place] # (Auto) Eos # (Auto) Baso # (Auto) Absolute Nucleated RBC Nucleated RBC % Manual Slide Review RBC Morph Micro Appear PT 12.5 INR 1.1 VBG pH VBG pCO2 VBG pO2 VBG HCO3 VBG Total CO2 VBG O2 Saturation VBG Base Excess Sodium 133 L Potassium 3.1 L Chloride 98 L Carbon Dioxide 15 L Anion Gap 20.0 H BUN 2 L Creatinine 0.5 L Estimated GFR (MDRD) 135 Glucose 104 Lactic Acid 1.0 Calcium 7.8 L Phosphorus Magnesium Total Bilirubin 2.9 H AST 127 H ALT 40 Alkaline Phosphatase 95 Total Protein 6.5 Albumin 3.4 Globulin 3.1 Albumin/Globulin Ratio 1.1 Lipase Nasal Adenovirus (PCR) Nasal B. parapertussis DNA (PCR) Nasal Coronavir 229E PCR Nasal Coronavir HKU1 PCR Nasal Coronavir NL63 PCR Nasal Coronavir OC43 PCR Nasal Enterovir/Rhinovir PCR Nasal Influenza B PCR Nasal Influenza A PCR Nasal Parainfluen 1 PCR Nasal Parainfluen 2 PCR Nasal Parainfluen 3 PCR Nasal Parainfluen 4 PCR Nasal RSV (PCR) Nasal B.pertussis DNA PCR Nasal C.pneumoniae (PCR) [place]iago Human Metapneumo PCR Nasal M.pneumoniae (PCR) Nasal SARS-CoV-2 (PCR) Ethyl Alcohol Serum Ketones Rads (name of study) CT PE: Relevant Findings:: Final report received and EMP independent interpretation of test Interpretation: IMPRESSION: No acute pulmonary embolism. No dense airspace disease or pleural effusions. Partially seen hepatic steatosis. 2 view chest x-ray: Relevant Findings:: Final report received and EMP independent interpretation of test Interpretation: IMPRESSION: No acute cardiopulmonary process. PD Medical Decision Making ED course Complexity details: re-evaluated patient, considered differential, d/w patient and d/w family ED course: 44-year-old female with known alcohol dependence presents to the emergency department for flulike symptoms for about a week now. Differentials include upper respiratory infection, virus, pneumonia, alcohol withdrawal. Patient says that she normally drinks about 3 to 4 cups of vodka a day last alcoholic beverage was last night she still been drinking through feeling the symptoms. She is been having nausea vomiting and persistent cough. Labs are complete for further evaluation and patient was found to have mild leukocytosis, WBC 13.5 sig nificant hyponatremia, sodium level 127, hypokalemia of 4.5 chloride 85, carbon dioxide 16, anion gap 26, blood glucose 154, magnesium 1.2, AST 866, alk phos 133, ALT 56 alcohol level was found to be unremarkable and serum ketones showed small amount. High suspicion that patient is experiencing alcoholic ketoacidosis. She is given 2 L of IV fluids to see if she is able to help correct her symptoms she is still quite ill after 2 L of IV fluids she is also given 20 mEq potassium orally and 20 mEq potassium IV potassium rechecked and has improved up to 3.1 and although carbon dioxide is down to 15. Anion gap stays elevated at 20. She has persistent cough with tachycardia so a CT PE was complete for further evaluation and no pulmonary emboli was visualized she has no dense airspace disease or pleural effusion she does have partially seen hepatic steatosis. Because patient is still having quite a bit of symptoms of nausea vomiting fatigue and her labs have not significant improved I think that she would benefit from hospitalization and patient is agreeable to stay. Patient says that she is open to social work consult for possible rehab information to help with coming off alcohol she has never had alcohol withdrawal symptoms or alcohol withdrawal seizures in the past. Her supportive is at bedside who also struggles with alcohol and says that they both will work on getting clean and sober. Spoke with hospitalist, Victoria Silva who has graciously agreed to admit the patient and patient is agreeable to stay. Discharge Plan Discharge Patient Disposition: ED Place in Observation Condition: Stable Clinical Impression: Alcoholic ketoacidosis, Alcohol dependence, Hepatic steatosis, Acute hyponatremia, Acute hypokalemia, Hypomagnesemia Prescriptions: No Action gabapentin 300 mg capsule 300 mg PO BID cyclobenzaprine 10 mg tablet 10 mg PO TID PRN (Reason: muscle spasm) Print Language: Niuean Stand Alone Forms: PCP List
[2024-11-24 13:27] LABS: VBG BASE EXCESS -9.6 mmol/L (-2 - +2); VBG PCO2 24.6 mmHg (41-51); VBG PH 7.401 (7.31-7.41); VBG PO2 35.1 mmHg (25-47); VBG TOTAL CO2 16.2 mmol/L (24-29)
[2024-11-24 13:27] LABS: ETOH - ETHANOL < 10.0 mg/dL; MAGNESIUM 1.2 mg/dL (1.7-2.3); PHOSPHORUS 2.2 mg/dL (2.5-5.0)
[2024-11-24] MEDS: SODIUM CHLORIDE 0.9% 2,000 ML IV STA (13:32)
[2024-11-24] MEDS: ONDANSETRON 4 MG/2 ML VIAL IVP STA (13:44)
[2024-11-24] MEDS: POTASSIUM CHLOR 10 MEQ/100 ML 10 MEQ/100 ML BAG IV SCH (13:45)
[2024-11-24] MEDS: POTASSIUM CHLORIDE 20 MEQ/15 ML UDC PO STA (13:45)
[2024-11-24] MEDS: BENZONATATE 100 MG CAPSULE PO STA (14:37)
[2024-11-24] MEDS: LORazepam 2 MG/ML VIAL IVP STA (16:11)
[2024-11-24] MEDS: MAGNESIUM OXIDE 400 MG TABLET PO STA (17:08)
[2024-11-24 17:40] LABS: ALBUMIN 3.4 g/dL (3.2-5.5); ALBUMIN/GLOBULIN RATIO 1.1 (1.0-2.2); BILIRUBIN,TOTAL 2.9 mg/dL (0.2-1.0); CALCIUM 7.8 mg/dL (8.5-10.3); CREATININE 0.5 mg/dL (0.6-1.3); POTASSIUM 3.1 mmol/L (3.5-4.5); TOTAL PROTEIN 6.5 g/dL (6.4-8.9)
[2024-11-24] MEDS ORDERED: iohexoL-300 100 ML VIAL ONE (19:04)
[2024-11-24] MEDS: iohexoL-300 100 ML VIAL IVP ONE (19:58)
--- NOTE | 2024-11-24 20:13 | CT Report ---
PROCEDURE: CT Angio Chest INDICATIONS: tachy, cough CONTRAST: 100 ml omni 300 TECHNIQUE: After the administration of intravenous contrast, 2 mm axial images were acquired from the pulmonary apices to the posterior costophrenic angles during the arterial phase. In addition, 1 mm lung kernel and 5 mm soft tissue kernel reconstructions were performed. 3-dimensional coronal oblique maximum int ensity projection (MIP) reformats, 8 mm axial MIP, and 5 mm coronal and sagittal MPR reformats were t hen performed through the thorax. For radiation dose reduction, the following was used: automated exp osure control, adjustment of mA and/or kV according to patient size. COMPARISON: Same-day radiograph FINDINGS: Image quality: Diagnostic Lungs and pleura:No dense airspace consolidation. Mild basal atelectasis. No pleural effusions. Mediastinum, heart, and esophagus: No acute pulmonary embolism. Mildly prominent distal esophagus. Heart size is at the upper lateral normal. Chest wall and thyroid: Unremarkable Upper abdomen: Suspected hepatic steatosis partially seen Bones: No compressive appearing osseous abnormality. IMPRESSION: No acute pulmonary embolism. No dense airspace disease or pleural effusions. Partially seen hepatic steatosis. Reviewed by: Obed Ledezma MD on 11/24/2024 8:12 PM PDT Approved by: Obed Ledezma MD on 11/24/2024 8:12 PM PDT Station ID: [id number]
[2024-11-24 21:08] LABS: INR 1.1 (0.8-1.2); PT - PROTHROMBIN TIME 12.5 secs (9.9-12.6)
[2024-11-24] MEDS: MULTIVITAMIN 10 ML, THIAMINE INJ 100 MG, FOLIC ACID INJ 1 MG in SODIUM CHLORIDE 0.9% 1,... IV SCH (21:15)
--- NOTE | 2024-11-24 21:20 | HISTORY & PHYSICAL EXAMINATION ---
Chief Complaint Chief Complaint Chief Complaint: flu like symptoms History of Present Illness Admitted From Admitted From:: home History Obtained From History obtained from: patient and spouse History of Present Illness HPI Comment/Other: 44-year-old female who presents to the emergency department today with complaints of a flu like illness. For about 5 days she has had an irritating dry cough and bloody nose. She has also noted that she has been bruising more easily. Today her brought her here to the hospital because he noted that she had scleral icterus.She has also been having nausea and vomiting over the last several days. She has had decreased p.o. intake.No one else at home has been sick. She has a history of alcohol use drinks every day. She has not had a drink for about 24 hours. She has been in the emergency department for about 8 hours and during that time has been treated for hypokalemia with correction of her past potassium from 2.5- 3.1, hyponatremia with correction of her sodium from 1 27-1 33. 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 Emergency department service is requesting that I admit this patient for alcoholic ketoacidosis. Meds/Allgy Home Medications Ambulatory Orders Medication Instructions Recorded Confirmed cyclobenzaprine 10 mg tablet 10 mg PO TID PRN muscle spasm 11/24/24 11/24/24 gabapentin 300 mg capsule 300 mg PO BID 11/24/24 11/24/24 Allergies Allergies Allergy/AdvReac Type Severity Reaction Status Date / Time No Known Drug Allergies Allergy Verified 11/24/24 12:04 PFSH Active Problems All Active Problems (Updated 11/24/24 @ 21:37 by JOSELO Connell) Hypophosphatemia (Acute) Hypomagnesemia (Acute) Acute hypokalemia (Acute) Acute hyponatremia (Acute) Hepatic steatosis (Acute) Alcohol dependence (Acute) Alcoholic ketoacidosis (Acute) Neuropathy (Acute) Alcoholism with alcohol dependence (Acute) Alcoholic ketoacidosis (Acute) Surgical History Surgical History (Updated 11/24/24 @ 13:40 by Canelo Hazel RN) Hx of appendectomy Social History Social History (Updated 11/24/24 @ 13:40 by Canelo Hazel RN) Smoking Status: Never smoker Do you dip or chew tobacco?: No Do you vape?: No Living arrangement: At home Relationship: Level: Independent Do you feel safe in your home environment?: Yes Suffered physical, verbal, emotional, or financial abuse?: No ETOH Use: None and Liquor Frequency: Daily Number of Amount/day: 2 Substance Use: denies use POLST Patient has POLST: No Review of Systems Status of ROS: 10 or more systems reviewed and unremarkable except as noted in history and below Constitutional Reports: Fatigue, Malaise, Weakness and Poor appetite; Denies: Fever or Chills Eyes Denies: Vision loss or Eye discharge Ears, nose, mouth, and throat Reports: Nose bleeds and Nasal congestion; Denies: Change in hearing or Throat pain Cardiovascular Denies: Irregular heart rate, chest pain, palpitations, edema, Syncope or shortness of breath with exertion Respiratory Reports: Cough (shallow dry cough); Denies: Shortness of breath Gastrointestinal Reports: Nausea, Vomiting and Poor appetite; Denies: Abdominal pain or Diarrhea Genitourinary Reports: Decreased urine ouput; Denies: Painful urination or Urinary frequency Musculoskeletal Denies: Extremity pain, Extremity swelling or Muscle cramps Integumentary/Breast Denies: Rash Neurological Denies: Headache Endocrine Reports: Fatigue Hematologic/Lymphatic Reports: Easy bruising Prior Level of Functionality: independent. Exam Constitutional thin appearing female who looks acutely ill HENMT normocephalic, external ears normal and oral mucous membranes normal Eyes PERRL and scleral icterus noted (obvious scleral icterus) Neck/C-Spine trachea midline Lymph no lymphadenopathy noted Chest inspection of chest normal Respiratory breath sounds equal bilaterally, normal respiratory effort, clear to auscultation bilaterally and no use of accessory muscles Cardiovascular normal heart rate noted, peripheral pulses 2+ throughout and no edema Gastrointestinal abdomen soft to palpation abdomen is mildly distended Extremities normal to inspection and normal to palpation 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 Presents to the emergency department with electrolyte abnormalities including hyponatremia, hypokalemia and hypomagnesemia. The acuity of these is unknown as patient does not have any recent labs within our health system. She states it has been about 24 hours since her last drink. She is a daily drinker states that she drinks 2 liquor drinks a day. Recently, she has also been practicing intermittent fasting, eating one meal a day. She has significant anion gap on her chemistries and significantly low carbon dioxide. I have ordered thiamine to be given immediately in the emergency department as I do not have access to banana bags at this hour of the day. When she gets to the floor we will start her on fluids containing dextrose overnight. I will check electrolytes in the AM. She is also to consume a regular diet.I will treat any nausea and vomiting with Zofran IV. She also has elevated bilirubin indicating some hepatic injury. Her INR is within normal limits at 1.1. I will jeri bilirubin in the AM. Incidentally seen on CT chest is hepatic steatosis. Discussed with Thuan Archibald NP in the emergency department decision was made to admit the patient overnight for alcoholic ketoacidosis. (2) Alcoholism with alcohol dependence: Plan: She denies any history of alcohol withdrawal. I have ordered CIWA protocol and we will use IV Ativan as needed for withdrawal symptoms. She and her both expressed a desire to quit drinking. I have ordered social work consult for the a.m. (3) Acute hyponatremia: Plan: . Likely will self-correct as her other electrolyte imbalances correct and with better oral intake. I will monitor sodium in the AM.Laboratory Tests 11/24/24 11/24/24 12:32 17:03 Sodium 127 L 133 L (4) Acute hypokalemia: Plan: Possibly secondary to GI loss. Will continue to monitor. I am giving her potassium containing fluids overnight.Laboratory Tests 11/24/24 11/24/24 12:32 17:03 Potassium 2.5 L* 3.1 L (5) Hypomagnesemia: Plan: Laboratory Tests 11/24/24 12:32 Magnesium 1.2 L Continue to monitor. Has been repleted with 2 g of mag in the emergency department. (6) Hypophosphatemia: Plan: Possibly due to poor intake and refeeding syndrome. I do not see that this was repleted in the emergency department. 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 She is on gabapentin 300 mg twice daily at home, I will continue this medication.. Plan I have spent 76 minutes in the care of this patient today. This includes time [id number], review and ordering of diagnostic imaging and laboratory studies and consultation with other providers. Monitoring the patient's signs symptoms, evaluation of medication effectiveness and patient's response to treatment. Lab Results Lab results reviewed: Yes 11/24/24 12:32 11/24/24 17:03 Diagnostic Imaging Results Diagnostic Imaging Results: positive Final report reviewed Core Measures Anticipated LOS I expect patient to be DC'd or transferred within 96 hours.: Yes Issues Hospital Issues and Management Plan: Alcoholic ketoacidosis and a habitual drinker. Will monitor for withdrawal and correct patient's electrolyte abnormalities and monitor labs closely. Social work consult for alcohol dependency. Will need close primary care follow-up in light of her liver dysfunction. DVT/VTE - Prophylaxis VTE/DVT Device ordered at admit?: Yes VTE/DVT Prophylaxis med ordered at admit?: Yes
[2024-11-24] MEDS ORDERED: ONDANSETRON 4 MG/2 ML VIAL IVP PRN (21:41)
[2024-11-24] MEDS ORDERED: SODIUM CHLORIDE FLUSH 0.9% 10 ML SYRINGE IVP PRN (21:41)
[2024-11-24] MEDS ORDERED: LORazepam 1 MG TABLET PO PRN (21:41)
[2024-11-24] MEDS: DEXTROSE-SOD CHLOR W/20 MEQ K 1,000 ML IV SCH (22:51)
[2024-11-24] MEDS: THIAMINE INJ 100 MG in SODIUM CHLORIDE 0.9% 50 ML IV STA (23:00)
[2024-11-24] MEDS: FAMOTIDINE 20 MG/2 ML VIAL IVP SCH (23:11)
[2024-11-24] MEDS: SODIUM CHLORIDE FLUSH 0.9% 10 ML SYRINGE IVP SCH (23:50)
[2024-11-25 01:13] LABS: BILIRUBIN,URINE SMALL (NEGATIVE); GLUCOSE, URINE (UA) NEGATIVE (NEGATIVE); KETONES,URINE (UA) 15 mg/dL (NEGATIVE); LEUKOCYTE ESTERASE, URINE NEGATIVE (NEGATIVE); NITRITE,URINE NEGATIVE (NEGATIVE); OCCULT BLOOD,URINE NEGATIVE (NEGATIVE); PROTEIN,URINE NEGATIVE (NEGATIVE); UROBILINOGEN,URINE 4 E.U./dL (NORMAL)
[2024-11-25 01:16] LABS: CLARITY,URINE CLEAR (CLEAR)
[2024-11-25] MEDS: BENZONATATE 100 MG CAPSULE PO PRN ×2 (06:35→14:33)
[2024-11-25] MEDS: BENZOCAINE/MENTHOL LOZENGE MM PRN ×2 (08:02→12:43)
[2024-11-25] MEDS: HEPARIN 5,000 UNIT/ML VIAL SUBQ SCH (08:25)
[2024-11-25 09:03] LABS: BASOPHILS # (AUTO) 0.1 10^3/uL (0.0-0.1); BASOPHILS % (AUTO) 0.9 %; EOSINOPHILS # (AUTO) 0.1 10^3/uL (0.0-0.7); EOSINOPHILS % (AUTO) 1.4 %; HGB - HEMOGLOBIN 8.8 g/dL (12.0-16.0); LYMPHOCYTES # (AUTO) 1.4 10^3/uL (1.5-3.5); MEAN CORPUSCULAR HEMOGLOBIN 34.2 pg (27.0-31.0); MEAN CORPUSCULAR HGB CONC 33.8 g/dL (32.0-36.0); MEAN CORPUSCULAR VOLUME 101.2 fL (81.0-99.0); MEAN PLATELET VOLUME 9.9 fL (7.9-10.8); MONOCYTES # (AUTO) 1.3 10^3/uL (0.0-1.0); MONOCYTES % (AUTO) 20.7 %; NEUTROPHILS # (AUTO) 3.5 10^3/uL (1.5-6.6); NEUTROPHILS % (AUTO) 54.6 %; NRBC ABSOLUTE COUNT (AUTO) 0.02 x10^3/uL; NUCLEATED RED BLOOD CELLS AUTO 0.3 /100WBC; PLT - PLATELET COUNT 292 10^3/uL (130-450); RED BLOOD COUNT 2.57 10^6/uL (4.20-5.40); WHITE BLOOD COUNT 6.5 x10^3/uL (4.8-10.8)
[2024-11-25 09:23] LABS: % IRON SATURATION 69 % (20-50); IRON 107 ug/dL (50-212); TOTAL IRON BINDING CAPACITY 154 ug/dL (250-450); TRANSFERRIN 110 mg/dL (203-362)
[2024-11-25 09:40] LABS: ALBUMIN 3.1 g/dL (3.2-5.5); ALBUMIN/GLOBULIN RATIO 0.9 (1.0-2.2); ALKALINE PHOSPHATASE 84 IU/L (42-121); ALT ALANINE AMINOTRANSFERASE 35 IU/L (10-60); AST ASPARTATE AMINOTRANSFERASE 115 IU/L (10-42); BILIRUBIN,TOTAL 1.9 mg/dL (0.2-1.0); BUN - BLOOD UREA NITROGEN < 2 mg/dL (6-20); CALCIUM 7.4 mg/dL (8.5-10.3); CARBON DIOXIDE - CO2 25 mmol/L (21-32); CHLORIDE 105 mmol/L (101-111); CREATININE 0.4 mg/dL (0.6-1.3); GFR - MDRD 174 (>89); GLUCOSE 192 mg/dL (74-104); PHOSPHORUS < 1.0 mg/dL (2.5-5.0); POTASSIUM 2.5 mmol/L (3.5-4.5); SODIUM 137 mmol/L (135-145); TOTAL PROTEIN 6.5 g/dL (6.4-8.9)
[2024-11-25] MEDS: POTASSIUM CHLORIDE 20 MEQ TABLET PO SCH (10:13)
[2024-11-25] MEDS: MULTIVITAMIN 10 ML, THIAMINE INJ 100 MG, FOLIC ACID INJ 1 MG in SODIUM CHLORIDE 0.9% 1,... IV SCH (10:14)
[2024-11-25] MEDS: PANTOPRAZOLE 40 MG TABLET PO SCH (11:12)
[2024-11-25] MEDS: guaiFENesin 100 MG/5 ML UDC PO PRN (11:12)
[2024-11-25] MEDS: THIAMINE 100 MG TABLET PO SCH (11:17)
[2024-11-25] MEDS: NEUTRA-PHOS 250 MG TABLET PO SCH (11:17)
[2024-11-25] MEDS: FOLIC ACID 1 MG TABLET PO SCH (11:17)
[2024-11-25] MEDS: MULTIVITAMIN TABLET PO SCH (12:43)
[2024-11-25] MEDS: MAGNESIUM SULFATE 2 GRAM 2 GM/50 ML BAG IV SCH (12:51)
[2024-11-25] MEDS: POTASSIUM PHOSPHATE 15 MMOL in SODIUM CHLORIDE 0.9% 250 ML IV SCH (13:23)
[2024-11-25] MEDS: MAGNESIUM SULFATE 2 GRAM 4 GM/100 ML BAG IV ONE (13:54)
[2024-11-25] MEDS: POTASSIUM PHOSPHATE 15 MMOL in SODIUM CHLORIDE 0.9% 250 ML IV ONE (13:55)
--- NOTE | 2024-11-25 14:47 | PROVIDER PROGRESS NOTE ---
Subjective Prog Note Date Prog Note Date: 11/25/24 Prog Note Time: 14:36 Subjective Pt reports feeling: No change Subjective: Patient continues to have a cough and is generally feeling weak with poor appetite Current Medications Current Medications Current Medications: Current Medications Generic Name Dose Route Start Last Admin Trade Name Freq PRN Reason Stop Dose Admin Benzonatate 200 mg 11/25/24 09:21 Benzonatate 100 Mg Capsule PO TID PRN Cough Folic Acid 1 mg 11/25/24 12:00 11/25/24 11:17 Folic Acid 1 Mg Tablet PO 1 mg DAILY GENA Administration Guaifenesin 200 mg 11/25/24 09:21 11/25/24 11:12 Guaifenesin 100 Mg/5 Ml Udc PO 200 mg Q4H PRN Administration Cough Heparin Sodium (Porcine) 5,000 unit 11/25/24 09:00 11/25/24 08:25 Heparin 5,000 Unit/Ml Vial SUBQ 5,000 unit BID GENA Administration Potassium Phosphate 15 mmol/ 255 mls @ 42.5 mls/hr 11/25/24 13:00 11/25/24 13:23 Sodium Chloride IV 11/25/24 20:59 42.5 mls/hr Q4H GENA Administration Magnesium Sulfate 2 gm in 50 mls @ 25 mls/hr 11/25/24 12:43 11/25/24 14:33 Magnesium Sulfate IV 11/25/24 15:15 Infused Q2H GENA Infusion Ibuprofen 400 mg 11/24/24 21:41 Ibuprofen 400 Mg Tablet PO Q4HR PRN Pain 1 to 4 Lorazepam 1 mg 11/24/24 21:41 Lorazepam 1 Mg Tablet PO Q1H PRN CIWA > 8 Protocol Multivitamins 1 tab 11/25/24 12:00 11/25/24 12:43 Multivitamin Tablet PO 1 tab DAILYWM GENA Administration Ondansetron HCl 4 mg 11/24/24 21:41 Ondansetron 4 Mg/2 Ml Vial IVP Q6HR PRN Nausea / Vomiting Pantoprazole Sodium 40 mg 11/25/24 11:00 11/25/24 11:12 Pantoprazole 40 Mg Tablet PO 40 mg QDAC GENA Administration Potassium Chloride 30 meq 11/25/24 09:00 11/25/24 10:13 Potassium Chloride 20 Meq Tablet PO 30 meq DAILYWM GENA Administration Sodium Chloride 10 ml 11/24/24 21:41 Sodium Chloride Flush 0.9% 10 Ml Syringe IVP PRN PRN NEEDED PER PROVIDER ORDERS Sodium Chloride 10 ml 11/25/24 01:00 11/25/24 08:26 Sodium Chloride Flush 0.9% 10 Ml Syringe IVP 10 ml 0100,0900,1700 GENA Administration Thiamine HCl 100 mg 11/25/24 12:00 11/25/24 11:17 Thiamine 100 Mg Tablet PO 100 mg DAILY GENA Administration Throat Lozenges 1 lozenge 11/25/24 10:13 11/25/24 12:43 Benzocaine/Menthol Lozenge MM 1 lozenge Q2HR PRN Administration Mouth Sore Pain Objective Vital Signs/Intake & Output Reviewed Vital Signs: Yes Vital Signs: Vital Signs x48h Temp Pulse Resp BP Pulse Ox 11/25/24 12:32 36.5 C 95 20 138/88 H 99 11/25/24 08:24 36.7 C 95 20 119/87 99 Intake & Output: Intake & Output 11/22/24 11/23/24 11/24/24 11/25/24 23:59 23:59 23:59 23:59 Intake Total 2388 / 2388 3451 / 3451 Output Total 225 / 225 Balance 2388 / 2388 3226 / 3226 Weight (kg) 49 kg Objective General Appearance: positive No acute distress and Alert Eyes Bilateral: positive Normal inspection and No scleral icterus (Bilaterally eyes are mildly icteric) Neck: positive Nml inspection Respiratory: positive No respiratory distress, Breath sounds nml and Other (Persistent coughing throughout the exam); negative Wheezes Cardiovascular: positive Regular rate & rhythm, No murmur and No gallop Abdomen: positive Non-tender, No organomegaly, Nml bowel sounds and No distention Skin: positive Color nml Extremities: positive Non-tender, Nml appearance and No pedal edema Neurologic/Psychiatric: positive Oriented x3, CN's nml (2-12) and Mood/affect nml Lab Results 11/25/24 08:48 11/25/24 08:48 Other Labs: Lab Results x24hrs 11/25/24 11/25/24 11/25/24 Range/Units 11:37 08:48 06:46 WBC 6.5 (4.8-10.8) x10^3/uL RBC 2.57 L (4.20-5.40) 10^6/uL Hgb 8.8 L (12.0-16.0) g/dL Hct 26.0 L (37.0-47.0) % MCV 101.2 H (81.0-99.0) fL MCH 34.2 H (27.0-31.0) pg MCHC 33.8 (32.0-36.0) g/dL RDW 14.0 (12.0-15.0) % Plt Count 292 (130-450) 10^3/uL MPV 9.9 (7.9-10.8) fL Neut # (Auto) 3.5 (1.5-6.6) 10^3/uL Lymph # (Auto) 1.4 L (1.5-3.5) 10^3/uL [place] # (Auto) 1.3 H (0.0-1.0) 10^3/uL Eos # (Auto) 0.1 (0.0-0.7) 10^3/uL Baso # (Auto) 0.1 (0.0-0.1) 10^3/uL Absolute Nucleated RBC 0.02 x10^3/uL Nucleated RBC % 0.3 /100WBC PT (9.9-12.6) secs INR (0.8-1.2) APTT (24.9-33.3) secs Sodium 137 (135-145) mmol/L Potassium 2.5 L* (3.5-4.5) mmol/L Chloride 105 (101-111) mmol/L Carbon Dioxide 25 (21-32) mmol/L Anion Gap 7.0 (6-13) BUN < 2 L (6-20) mg/dL Creatinine 0.4 L (0.6-1.3) mg/dL Estimated GFR (MDRD) 174 (>89) Glucose 192 H (74-104) mg/dL POC Whole Bld Glucose 152 174 (70-100) mg/dL Lactic Acid (0.5-2.2) mmol/L Calcium 7.4 L (8.5-10.3) mg/dL Phosphorus < 1.0 L* (2.5-5.0) mg/dL Magnesium 1.0 L* (1.7-2.3) mg/dL Iron 107 (50-212) ug/dL TIBC 154 L (250-450) ug/dL % Saturation 69 H (20-50) % Transferrin 110 L (203-362) mg/dL Total Bilirubin 1.9 H (0.2-1.0) mg/dL AST 115 H (10-42) IU/L ALT 35 (10-60) IU/L Alkaline Phosphatase 84 (42-121) IU/L Total Protein 6.5 (6.4-8.9) g/dL Albumin 3.1 L (3.2-5.5) g/dL Globulin 3.4 (2.1-4.2) g/dL Albumin/Globulin Ratio 0.9 L (1.0-2.2) Urine Color Urine Clarity (CLEAR) Urine pH (5.0-7.5) PH Ur Specific [place] (1.002-1.030) Urine Protein (NEGATIVE) mg/dL Urine Glucose (UA) (NEGATIVE) mg/dL Urine Ketones (NEGATIVE) mg/dL Urine Occult Blood (NEGATIVE) Urine Nitrite (NEGATIVE) Urine Bilirubin (NEGATIVE) Urine Urobilinogen (NORMAL) E.U./dL Ur Leukocyte Esterase (NEGATIVE) Ur Microscopic Review Urine Culture Comments 11/25/24 11/25/24 11/24/24 Range/Units 06:38 00:06 23:59 WBC (4.8-10.8) x10^3/uL RBC (4.20-5.40) 10^6/uL Hgb (12.0-16.0) g/dL Hct (37.0-47.0) % MCV (81.0-99.0) fL MCH (27.0-31.0) pg MCHC (32.0-36.0) g/dL RDW (12.0-15.0) % Plt Count (130-450) 10^3/uL MPV (7.9-10.8) fL Neut # (Auto) (1.5-6.6) 10^3/uL Lymph # (Auto) (1.5-3.5) 10^3/uL [place] # (Auto) (0.0-1.0) 10^3/uL Eos # (Auto) (0.0-0.7) 10^3/uL Baso # (Auto) (0.0-0.1) 10^3/uL Absolute Nucleated RBC x10^3/uL Nucleated RBC % /100WBC PT (9.9-12.6) secs INR (0.8-1.2) APTT 26.6 (24.9-33.3) secs Sodium (135-145) mmol/L Potassium (3.5-4.5) mmol/L Chloride (101-111) mmol/L Carbon Dioxide (21-32) mmol/L Anion Gap (6-13) BUN (6-20) mg/dL Creatinine (0.6-1.3) mg/dL Estimated GFR (MDRD) (>89) Glucose (74-104) mg/dL POC Whole Bld Glucose 140 (70-100) mg/dL Lactic Acid (0.5-2.2) mmol/L Calcium (8.5-10.3) mg/dL Phosphorus (2.5-5.0) mg/dL Magnesium (1.7-2.3) mg/dL Iron (50-212) ug/dL TIBC (250-450) ug/dL % Saturation (20-50) % Transferrin (203-362) mg/dL Total Bilirubin (0.2-1.0) mg/dL AST (10-42) IU/L ALT (10-60) IU/L Alkaline Phosphatase (42-121) IU/L Total Protein (6.4-8.9) g/dL Albumin (3.2-5.5) g/dL Globulin (2.1-4.2) g/dL Albumin/Globulin Ratio (1.0-2.2) Urine Color DARK YELLOW Urine Clarity CLEAR (CLEAR) Urine pH 6.0 (5.0-7.5) PH Ur Specific [place] <=1.005 (1.002-1.030) Urine Protein NEGATIVE (NEGATIVE) mg/dL Urine Glucose (UA) NEGATIVE (NEGATIVE) mg/dL Urine Ketones 15 H (NEGATIVE) mg/dL Urine Occult Blood NEGATIVE (NEGATIVE) Urine Nitrite NEGATIVE (NEGATIVE) Urine Bilirubin SMALL H (NEGATIVE) Urine Urobilinogen 4 H (NORMAL) E.U./dL Ur Leukocyte Esterase NEGATIVE (NEGATIVE) Ur Microscopic Review NOT INDICATED Urine Culture Comments NOT INDICATED 03/22/25 03/22/25 Range/Units 20:53 17:03 WBC (4.8-10.8) x10^3/uL RBC (4.20-5.40) 10^6/uL Hgb (12.0-16.0) g/dL Hct (37.0-47.0) % MCV (81.0-99.0) fL MCH (27.0-31.0) pg MCHC (32.0-36.0) g/dL RDW (12.0-15.0) % Plt Count (130-450) 10^3/uL MPV (7.9-10.8) fL Neut # (Auto) (1.5-6.6) 10^3/uL Lymph # (Auto) (1.5-3.5) 10^3/uL [place] # (Auto) (0.0-1.0) 10^3/uL Eos # (Auto) (0.0-0.7) 10^3/uL Baso # (Auto) (0.0-0.1) 10^3/uL Absolute Nucleated RBC x10^3/uL Nucleated RBC % /100WBC PT 12.5 (9.9-12.6) secs INR 1.1 (0.8-1.2) APTT (24.9-33.3) secs Sodium 133 L (135-145) mmol/L Potassium 3.1 L (3.5-4.5) mmol/L Chloride 98 L (101-111) mmol/L Carbon Dioxide 15 L (21-32) mmol/L Anion Gap 20.0 H (6-13) BUN 2 L (6-20) mg/dL Creatinine 0.5 L (0.6-1.3) mg/dL Estimated GFR (MDRD) 135 (>89) Glucose 104 (74-104) mg/dL POC Whole Bld Glucose (70-100) mg/dL Lactic Acid 1.0 (0.5-2.2) mmol/L Calcium 7.8 L (8.5-10.3) mg/dL Phosphorus (2.5-5.0) mg/dL Magnesium (1.7-2.3) mg/dL Iron (50-212) ug/dL TIBC (250-450) ug/dL % Saturation (20-50) % Transferrin (203-362) mg/dL Total Bilirubin 2.9 H (0.2-1.0) mg/dL AST 127 H (10-42) IU/L ALT 40 (10-60) IU/L Alkaline Phosphatase 95 (42-121) IU/L Total Protein 6.5 (6.4-8.9) g/dL Albumin 3.4 (3.2-5.5) g/dL Globulin 3.1 (2.1-4.2) g/dL Albumin/Globulin Ratio 1.1 (1.0-2.2) Urine Color Urine Clarity (CLEAR) Urine pH (5.0-7.5) PH Ur Specific [place] (1.002-1.030) Urine Protein (NEGATIVE) mg/dL Urine Glucose (UA) (NEGATIVE) mg/dL Urine Ketones (NEGATIVE) mg/dL Urine Occult Blood (NEGATIVE) Urine Nitrite (NEGATIVE) Urine Bilirubin (NEGATIVE) Urine Urobilinogen (NORMAL) E.U./dL Ur Leukocyte Esterase (NEGATIVE) Ur Microscopic Review Urine Culture Comments Diagnostic Imaging Diagnostic Imaging Results: positive Final report reviewed Assessment/Plan Problem List (1) Alcoholic ketoacidosis: Impression: * Acidosis improving, anion gap normal * D/C IVF given multiple Other IV fluids for electrolyte replacement patient's ongoing, Not compatible with maintenance fluids * Repeat labs later today once electrolytes are adequately replaced to reevaluate acidosis (2) Alcoholism with alcohol dependence: Impression: * Patient has a known history of alcoholism, with a who is also alcoholic * Has been counseled in the past on alcohol cessation and again reminded on importance of alcohol cessation and provided support options * Have discussed with social work to kindly assist in providing alcohol cessation counseling and resources * Last alcoholic beverage 24 hours prior to admission, but no reported history of alcohol withdrawal (3) Acute hyponatremia: Impression: * Likely etoh related, now resolved * Cont to follow labs (4) Acute hypokalemia: Impression: * Likely secondary to decreased p.o. intake and alcoholism Potassium replacement ordered Continue to follow labs and replace accordingly (5) Hypomagnesemia: Impression: * 2/2 Etoh * Replaced * Monitor labs (6) Hypophosphatemia: Impression: * 2/2 Etoh * Replaced * Monitor labs (7) Neuropathy: Impression: * Chronic, likely secondary to alcoholism * Resume gabapentin
[2024-11-25 20:12] LABS: ALBUMIN 3.2 g/dL (3.2-5.5); PHOSPHORUS 2.4 mg/dL (2.5-5.0)
[2024-11-25] MEDS: GABAPENTIN 300 MG CAPSULE PO SCH (20:12)
[2024-11-25 20:19] LABS: CALCIUM 7.9 mg/dL (8.5-10.3); CARBON DIOXIDE - CO2 28 mmol/L (21-32); CHLORIDE 102 mmol/L (101-111); CREATININE 0.4 mg/dL (0.6-1.3); GFR - MDRD 174 (>89); GLUCOSE 132 mg/dL (74-104); SODIUM 138 mmol/L (135-145)
[2024-11-25 20:29] LABS: BUN - BLOOD UREA NITROGEN < 2 mg/dL (6-20)
[2024-11-25] MEDS: CLOTRIMAZOLE/BETAMETHASONE 45 GM TUBE TOP SCH (21:56)
[2024-11-25] MEDS: CYCLOBENZAPRINE 10 MG TABLET PO PRN (22:20)
[2024-11-26] MEDS: IBUPROFEN 400 MG TABLET PO PRN (01:18)
[2024-11-26 04:04] LABS: CHLAMYDIA TRACHOMATIS DNA NEGATIVE (NEGATIVE); NEISSERIA GONORRHOEAE DNA NEGATIVE (NEGATIVE); TRICHOMONAS VAGINALIS DNA NEGATIVE (NEGATIVE)
[2024-11-26 05:30] LABS: BASOPHILS % (AUTO) 0.9 %; HCT - HEMATOCRIT 26.9 % (37.0-47.0); HGB - HEMOGLOBIN 9.3 g/dL (12.0-16.0); LYMPHOCYTES % (AUTO) 21.7 %; MEAN CORPUSCULAR HEMOGLOBIN 34.2 pg (27.0-31.0); MEAN CORPUSCULAR HGB CONC 34.6 g/dL (32.0-36.0); MEAN CORPUSCULAR VOLUME 98.9 fL (81.0-99.0); MONOCYTES % (AUTO) 22.4 %; NEUTROPHILS % (AUTO) 51.5 %; PLT - PLATELET COUNT 307 10^3/uL (130-450); RED BLOOD COUNT 2.72 10^6/uL (4.20-5.40); RED CELL DISTRIBUTION WIDTH 14.2 % (12.0-15.0); WHITE BLOOD COUNT 7.5 x10^3/uL (4.8-10.8)
[2024-11-26 05:43] LABS: ABNORMAL LYMPHS % (MANUAL) 0 %; BAND NEUTROPHILS % (MANUAL) 0 %
[2024-11-26 05:48] LABS: ALBUMIN 3.1 g/dL (3.2-5.5); ALKALINE PHOSPHATASE 88 IU/L (42-121); ALT ALANINE AMINOTRANSFERASE 33 IU/L (10-60); AST ASPARTATE AMINOTRANSFERASE 97 IU/L (10-42); BILIRUBIN,TOTAL 1.2 mg/dL (0.2-1.0); BUN - BLOOD UREA NITROGEN < 2 mg/dL (6-20); CALCIUM 7.7 mg/dL (8.5-10.3); CARBON DIOXIDE - CO2 30 mmol/L (21-32); CHLORIDE 100 mmol/L (101-111); CREATININE 0.3 mg/dL (0.6-1.3); GFR - MDRD 243 (>89); GLUCOSE 128 mg/dL (74-104); POTASSIUM 2.7 mmol/L (3.5-4.5); SODIUM 138 mmol/L (135-145); TOTAL PROTEIN 6.2 g/dL (6.4-8.9)
[2024-11-26 06:14] LABS: EOSINOPHILS # (MANUAL) 0.1 10^3/uL (0-0.7); LYMPHOCYTES # (MANUAL) 1.5 10^3/uL (1.5-3.5); LYMPHOCYTES % (MANUAL) 20 %; MONOCYTES # (MANUAL) 1.9 10^3/uL (0.0-1.0); MYELOCYTES % (MANUAL) 2 %; NEUTROPHILS # (MANUAL) 3.9 10^3/uL (1.5-6.6)
[2024-11-26 06:16] LABS: DIFFERENTIAL COMMENT MANUAL DIFFERENTIAL; PLATELET ESTIMATE, MANUAL NORMAL (130-450,000) (NORMAL); PLATELET MORPHOLOGY NORMAL APPEARANCE (NORMAL); RBC MORPHOLOGY (MULTIPLE) NORMAL APPEARANCE (NORMAL); WBC MORPHOLOGY (MULTIPLE) NORMAL APPEARANCE (NORMAL)
[2024-11-26] MEDS ORDERED: MAGNESIUM SULFATE 2 GRAM 4 GM/100 ML BAG IV ONE (07:08)
[2024-11-26] MEDS: MAGNESIUM SULFATE 2 GRAM 2 GM/50 ML BAG IV SCH (08:44)
[2024-11-26] MEDS: CLOTRIMAZOLE/BETAMETHASONE 15 GM TUBE TOP SCH (11:32)
[2024-11-26] MEDS: POTASSIUM CHLOR 10 MEQ/100 ML 10 MEQ/100 ML BAG IV SCH ×2 (11:35→16:31)
[2024-11-26] MEDS: SODIUM CHLORIDE 0.9% 500 ML IV PRN (11:40)
--- NOTE | 2024-11-26 12:44 | PROVIDER PROGRESS NOTE ---
<Statement entered by Clifford Nelson MD - 11/26/24 18:09> I have independently seen and examined the patient and agree with the assessment and plan as per PA student. Continue to provide supportive care for bronchitis, I despite her alcohol use history and decision was made to allow for codeine cough syrup given the fact the patient had unrelenting persistent cough prior to this. She has had significant relief since starting this but has been cautioned that we will not likely be prescribing this at discharge due to her alcohol dependency history. Subjective Prog Note Date Prog Note Date: 11/26/24 Prog Note Time: 17:22 Subjective Pt reports feeling: No change Subjective: * 44 yo female admitted for alcoholic ketoacidosis and accompanying acute bronchitis. She was asleep most of the day after the morning dose of guaifenesin-codeine. Her cough appears improved with the addition of cough medicine. Encouraged her to continue eating her dinner and resting. Her labs are continuing to improve and stabilize as we replenish her electrolytes, hydrate her, and she has more meals. Her and son were in the room when we visited for the exam. The let us know that he goes back to work tomorrow for the week and his mom can be available to help with childcare, but this may change the timeframe of the patients stay depending on how she is improving or not. Current Medications Current Medications Current Medications: Current Medications Generic Name Dose Route Start Last Admin Trade Name Freq PRN Reason Stop Dose Admin Benzonatate 200 mg 11/25/24 09:21 11/26/24 01:18 Benzonatate 100 Mg Capsule PO 200 mg TID PRN Administration Cough Clotrimazole 1 applic 11/26/24 11:00 11/26/24 11:32 Clotrimazole/Betamethasone 15 Gm Tube TOP 1 applic BID GENA Administration Cyclobenzaprine HCl 10 mg 11/25/24 21:59 11/25/24 22:20 Cyclobenzaprine 10 Mg Tablet PO 10 mg TID PRN Administration muscle spasm Folic Acid 1 mg 11/25/24 12:00 11/26/24 08:31 Folic Acid 1 Mg Tablet PO 1 mg DAILY GENA Administration Gabapentin 300 mg 11/25/24 21:00 11/26/24 08:30 Gabapentin 300 Mg Capsule PO 300 mg BID GENA Administration Guaifenesin 200 mg 11/25/24 09:21 11/26/24 08:55 Guaifenesin 100 Mg/5 Ml Udc PO 200 mg Q4H PRN Administration Cough Guaifenesin/Codeine Phosphate 5 ml 11/26/24 10:50 Guaifenesin/Codeine 5 Ml Udc PO Q6HR PRN Cough Heparin Sodium (Porcine) 5,000 unit 11/25/24 09:00 11/26/24 08:32 Heparin 5,000 Unit/Ml Vial SUBQ 5,000 unit BID GENA Administration Potassium Chloride 10 meq in 100 mls @ 100 mls/hr 11/26/24 08:00 11/26/24 11:35 Potassium Chloride IV 11/26/24 14:29 75 mls/hr Q1H GENA Administration Sodium Chloride 500 mls @ 20 mls/hr 11/26/24 08:08 11/26/24 11:40 Normal Saline 0.9% IV 20 mls/hr Q24H PRN Administration TKO RATE Ibuprofen 400 mg 11/24/24 21:41 11/26/24 06:20 Ibuprofen 400 Mg Tablet PO 400 mg Q4HR PRN Administration Pain 1 to 4 Lorazepam 1 mg 11/24/24 21:41 Lorazepam 1 Mg Tablet PO Q1H PRN CIWA > 8 Protocol Multivitamins 1 tab 11/25/24 12:00 11/26/24 08:30 Multivitamin Tablet PO 1 tab DAILYWM GENA Administration Ondansetron HCl 4 mg 11/24/24 21:41 Ondansetron 4 Mg/2 Ml Vial IVP Q6HR PRN Nausea / Vomiting Pantoprazole Sodium 40 mg 11/25/24 11:00 11/26/24 06:17 Pantoprazole 40 Mg Tablet PO 40 mg QDAC GENA Administration Potassium Chloride 30 meq 11/25/24 09:00 11/26/24 08:31 Potassium Chloride 20 Meq Tablet PO 30 meq DAILYWM GENA Administration Sodium Chloride 10 ml 11/24/24 21:41 Sodium Chloride Flush 0.9% 10 Ml Syringe IVP PRN PRN NEEDED PER PROVIDER ORDERS Sodium Chloride 10 ml 11/25/24 01:00 11/26/24 09:57 Sodium Chloride Flush 0.9% 10 Ml Syringe IVP 10 ml 0100,0900,1700 GENA Administration Thiamine HCl 100 mg 11/25/24 12:00 11/26/24 08:30 Thiamine 100 Mg Tablet PO 100 mg DAILY GENA Administration Throat Lozenges 1 lozenge 11/25/24 10:13 11/26/24 08:56 Benzocaine/Menthol Lozenge MM 1 lozenge Q2HR PRN Administration Mouth Sore Pain Objective Vital Signs/Intake & Output Reviewed Vital Signs: Yes Vital Signs: Vital Signs x48h Temp Pulse Resp BP Pulse Ox 11/26/24 08:00 36.7 C 95 20 120/89 98 11/26/24 05:00 37 C 86 20 137/97 H 99 Intake & Output: Intake & Output 11/23/24 11/24/24 11/25/24 11/26/24 23:59 23:59 23:59 23:59 Intake Total 2388 / 2388 4906 / 4906 1355 / 1355 Output Total 225 / 225 Balance 2388 / 2388 4681 / 4681 1355 / 1355 Weight (kg) 49 kg Objective General Appearance: positive Lethargic Eyes Bilateral: positive Normal inspection Respiratory: positive No respiratory distress, Breath sounds nml and Other (Able to talk in full sentences without eliciting cough. ); negative Wheezes Cardiovascular: positive Regular rate & rhythm, No murmur and No gallop Abdomen: positive Non-tender and No distention Skin: positive Color nml Extremities: positive No pedal edema Neurologic/Psychiatric: positive Oriented x3 and CN's nml (2-12) Lab Results 11/26/24 05:00 11/26/24 05:00 Other Labs: Lab Results x24hrs 11/26/24 11/25/24 11/25/24 Range/Units 05:00 22:20 19:52 WBC 7.5 (4.8-10.8) x10^3/uL RBC 2.72 L (4.20-5.40) 10^6/uL Hgb 9.3 L (12.0-16.0) g/dL Hct 26.9 L (37.0-47.0) % MCV 98.9 (81.0-99.0) fL MCH 34.2 H (27.0-31.0) pg MCHC 34.6 (32.0-36.0) g/dL RDW 14.2 (12.0-15.0) % Plt Count 307 (130-450) 10^3/uL MPV 10.0 (7.9-10.8) fL Neut # (Auto) Not Reportable Lymph # (Auto) Not Reportable [place] # (Auto) Not Reportable Eos # (Auto) Not Reportable Baso # (Auto) Not Reportable Absolute Nucleated RBC Not Reportable Total Counted 100 Band Neuts % (Manual) 0 (0 - 10) % Abnorm Lymph % (Manual) 0 % Myelocytes % 2 H ( - 0) % Nucleated RBC % Not Reportable Neutrophils # (Manual) 3.9 (1.5-6.6) 10^3/uL Lymphocytes # (Manual) 1.5 (1.5-3.5) 10^3/uL Monocytes # (Manual) 1.9 H (0.0-1.0) 10^3/uL Eosinophils # (Manual) 0.1 (0-0.7) 10^3/uL Basophils # (Manual) 0.0 (0-0.1) 10^3/uL Differential Comment MANUAL DIFFERENTIAL WBC Morphology NORMAL APPEARANCE (NORMAL) Platelet Estimate NORMAL (130-450,000) (NORMAL) Platelet Morphology NORMAL APPEARANCE (NORMAL) RBC Morph Micro Appear NORMAL APPEARANCE (NORMAL) Sodium 138 138 (135-145) mmol/L Potassium 2.7 L 3.0 L (3.5-4.5) mmol/L Chloride 100 L 102 (101-111) mmol/L Carbon Dioxide 30 28 (21-32) mmol/L Anion Gap 8.0 8.0 (6-13) BUN < 2 L < 2 L (6-20) mg/dL Creatinine 0.3 L 0.4 L (0.6-1.3) mg/dL Estimated GFR (MDRD) 243 174 (>89) Glucose 128 H 132 H (74-104) mg/dL Calcium 7.7 L 7.9 L (8.5-10.3) mg/dL Phosphorus 2.4 L (2.5-5.0) mg/dL Total Bilirubin 1.2 H (0.2-1.0) mg/dL AST 97 H (10-42) IU/L ALT 33 (10-60) IU/L Alkaline Phosphatase 88 (42-121) IU/L Total Protein 6.2 L (6.4-8.9) g/dL Albumin 3.1 L 3.2 (3.2-5.5) g/dL Globulin 3.1 (2.1-4.2) g/dL Albumin/Globulin Ratio 1.0 (1.0-2.2) Chlam trachomat DNA PCR NEGATIVE (NEGATIVE) N.gonorrhoeae DNA (PCR) NEGATIVE (NEGATIVE) T. vaginalis (PCR) NEGATIVE (NEGATIVE) Assessment/Plan Problem List (1) Alcoholic ketoacidosis: Impression: * Anion gap remains normal * IVF and oral supplements were given for electrolyte replacement. * Continue to monitor labs and correct electrolytes. 11/25 * Acidosis improving, anion gap normal * D/C IVF given multiple Other IV fluids for electrolyte replacement patient's ongoing, Not compatible with maintenance fluids * Repeat labs later today once electrolytes are adequately replaced to reevaluate acidosis (2) Alcoholism with alcohol dependence: Impression: * Patient appears comfortable without sign of withdrawal. * Will continue to support and provide resources. 11/25 * Patient has a known history of alcoholism, with a who is also alcoholic * Has been counseled in the past on alcohol cessation and again reminded on importance of alcohol cessation and provided support options * Have discussed with social work to kindly assist in providing alcohol cessation counseling and resources * Last alcoholic beverage 24 hours prior to admission, but no reported history of alcohol withdrawal (3) Bronchitis: Impression: * CXR and Chest CT were unremarkable for pneumonia. * Continue Benzonatate PRN * Start guaifenesin-codeine PRN * Monitor symptoms and medication use. (4) Acute hyponatremia: Impression: * Sodium remains within normal range. * Gave IVF w/ electrolyte replacements. * Continue to monitor w/ labs. 11/25 * Likely etoh related, now resolved * Cont to follow labs (5) Acute hypokalemia: Impression: * Potassium was low this AM. * Replenished w/ PO and IV. * Continue to encourage eating meals. * Monitor labs. 11/25 * Likely secondary to decreased p.o. intake and alcoholism * Potassium replacement ordered * Continue to follow labs and replace accordingly (6) Hypomagnesemia: Impression: * Replaced magnesium. * Continue to monitor labs. 11/25 * 2/2 Etoh * Replaced * Monitor labs (7) Hypophosphatemia: Impression: * Phosphate was replenished yesterday. * Continue to monitor labs. 11/25 * 2/2 Etoh * Replaced * Monitor labs (8) Neuropathy: Impression: * Chronic, stable. * Continue gabapentin 11/25 * Chronic, likely secondary to alcoholism * Resume gabapentin
[2024-11-26] MEDS: guaiFENesin/CODEINE 5 ML UDC PO PRN (13:12)
[2024-11-27 04:44] LABS: BASOPHILS % (AUTO) 0.6 %; EOSINOPHILS % (AUTO) 2.4 %; HCT - HEMATOCRIT 26.8 % (37.0-47.0); HGB - HEMOGLOBIN 9.1 g/dL (12.0-16.0); LYMPHOCYTES % (AUTO) 31.9 %; MEAN CORPUSCULAR HEMOGLOBIN 34.3 pg (27.0-31.0); MEAN CORPUSCULAR VOLUME 101.1 fL (81.0-99.0); MEAN PLATELET VOLUME 10.2 fL (7.9-10.8); MONOCYTES % (AUTO) 21.4 %; NEUTROPHILS % (AUTO) 41.5 %; PLT - PLATELET COUNT 358 10^3/uL (130-450); RED BLOOD COUNT 2.65 10^6/uL (4.20-5.40); RED CELL DISTRIBUTION WIDTH 14.7 % (12.0-15.0); WHITE BLOOD COUNT 7.2 x10^3/uL (4.8-10.8)
[2024-11-27 04:55] LABS: ABNORMAL LYMPHS % (MANUAL) 0 %
[2024-11-27 05:04] LABS: ALBUMIN 2.9 g/dL (3.2-5.5); ALBUMIN/GLOBULIN RATIO 0.9 (1.0-2.2); ALKALINE PHOSPHATASE 79 IU/L (42-121); ALT ALANINE AMINOTRANSFERASE 32 IU/L (10-60); AST ASPARTATE AMINOTRANSFERASE 103 IU/L (10-42); BILIRUBIN,TOTAL 0.9 mg/dL (0.2-1.0); BUN - BLOOD UREA NITROGEN < 2 mg/dL (6-20); CALCIUM 8.2 mg/dL (8.5-10.3); CARBON DIOXIDE - CO2 35 mmol/L (21-32); CHLORIDE 98 mmol/L (101-111); CREATININE 0.3 mg/dL (0.6-1.3); GFR - MDRD 243 (>89); GLUCOSE 105 mg/dL (74-104); POTASSIUM 3.1 mmol/L (3.5-4.5); SODIUM 138 mmol/L (135-145); TOTAL PROTEIN 6.2 g/dL (6.4-8.9)
[2024-11-27 06:18] LABS: BAND NEUTROPHILS % (MANUAL) 3 %; BASOPHILS # (MANUAL) 0.1 10^3/uL (0-0.1); BASOPHILS % (MANUAL) 1 %; DIFFERENTIAL COMMENT MANUAL DIFFERENTIAL; EOSINOPHILS # (MANUAL) 0.2 10^3/uL (0-0.7); LYMPHOCYTES % (MANUAL) 41 %; MONOCYTES # (MANUAL) 0.9 10^3/uL (0.0-1.0); MYELOCYTES % (MANUAL) 1 %; PLATELET ESTIMATE, MANUAL NORMAL (130-450,000) (NORMAL); PLATELET MORPHOLOGY NORMAL APPEARANCE (NORMAL); RBC MORPHOLOGY (MULTIPLE) NORMAL APPEARANCE (NORMAL); WBC MORPHOLOGY (MULTIPLE) NORMAL APPEARANCE (NORMAL)
[2024-11-27 08:25] VITALS: O2SAT 100
[2024-11-27] MEDS: KETOROLAC 30 MG/ML VIAL IVP PRN (14:54)
[2024-11-27] MEDS: hydrOXYzine PAMOATE 25 MG CAPSULE PO PRN (15:03)
[2024-11-27 15:49] VITALS: BP 138/96; TEMP 98.1
--- NOTE | 2024-11-27 16:18 | Discharge Summary ---
"Discharge Summary Admit Date: 11/24/24 Discharge Date: 11/27/24 Discharging Provider: Victoria Silva PA-C Primary Care Provider: Priscila Miranda MD Code Status: Attempt Resuscitation DIAGNOSES Admission Diagnoses: 1. Alcoholic Ketoacidosis 2. Alcoholism w/ alcohol dependence 3. Acute Hyponatremia 4. Acute hypokalemia 5. Hypomagnesemia 6. Hypophosphatemia 7. Neuropathy Discharge Diagnoses with Status of Each Condition: 1. Alcoholic Ketoacidosis -- improved, stable. 2. Alcoholism w/ alcohol dependence -- chronic, stable; discussed cessation 3. Acute Hyponatremia -- resolved, stable. 4. Acute hypokalemia -- improved, stable; given outpatient supplement 5. Hypomagnesemia -- improved, stable; given outpatient supplement 6. Hypophosphatemia -- improved, stable. 7. Neuropathy -- chronic, stable. HPI History of Present Illness: 44-year-old female who presents to the emergency department today with complaints of a flu like illness. For about 5 days she has had an irritating dry cough and bloody nose. She has also noted that she has been bruising more easily. Today her brought her here to the hospital because he noted that she had scleral icterus.She has also been having nausea and vomiting over the last several days. She has had decreased p.o. intake.No one else at home has been sick. She has a history of alcohol use drinks every day. She has not had a drink for about 24 hours. She has been in the emergency department for about 8 hours and during that time has been treated for hypokalemia with correction of her past potassium from 2.5- 3.1, hyponatremia with correction of her sodium from 1 27-1 33. She has persistently low carbon dioxide on her chemistry panels and an anion gap which is been decreased from 26 on admission to 20 just prior to emergency department [employer]'s phone call to me. Emergency department service is requesting that I admit this patient for alcoholic ketoacidosis. HOSPITAL COURSE Hospital Course: (1) Alcoholic ketoacidosis: Electrolytes have normalized or are trending in the right direction. Electrolyte fluids and oral supplements were given throughout her hospital stay. Anion gap, sodium, and potassium improved significantly. Calcium, phosphate, and magnesium were also trended throughout her stay and replenished as needed. Hepatic and renal function remain deteriorated. Counciled her on alcohol cessation and encouraged her to increase her dietary intake. Initiated daily folic acid, thiamine, potassium, magnesium, and a multivitamin. * Sodium 138 * Potassium 3.1, prev. 2.5 * Calcium 8.2, prev. 7.7 * Phosphorus 2.4, prev. <1.0 * Magnesium 1.3, prev. 1.0 * Total bilirubin 0.9, prev. 1.2 * Albumin 2.9, prev. 3.0 (2) Alcoholism with alcohol dependence: Discussed the detrimental effect that alcohol will continue to have on her health. The reality is that drinking ETOH will cause her liver function to worsen which will lead to cirrhosis and ascites. This fluid retention will increase her weight and her attempts at weight loss through starving/ fasting will have been a waste of time. We also discussed with the how an alcohol-free household would benefit both of them. * Encourage close f/u with PCP for continued support of alcohol cessation. * Recommend utilizing the resources provided by social work to help you with cessation. (3) Bronchitis: Coughing has improved in frequency and is now more productive. Lungs still sound clear w/o signs of fever, chills, or AMS. Symptoms appear managed with OTC medications, which can be continued in the outpatient setting. Cough Medications * Guaifenesin 200 mg PO Q4H PRN ordered for outpatient * Guaifenesin-Codeine 5mL PO Q6HR PRN ordered for outpatient * Benzonatate 200 mg PO TID PRN * Throat Lozenges Pain Medications provided for severe pain d/t aggressive coughing during hospital stay * Ordered Toradol 30 mg IVP Q6HR PRN * Ordered Hydroxyzine 25 mg PO QPM PRN (4) Acute hyponatremia: Hyponatremia present on admission has since been resolved with supplementation, rehydration, and increased food intake. * Continue to eat daily balanced meals * Continue daily multivitamin (5) Acute hypokalemia: Potassium level has improved since admission. * Continue daily potassium supplement * Continue to stay hydrated and eat balanced meals regularly (6) Hypomagnesemia: Magnesium level has improved since admission. * Levels will continue to improve with alcohol cessation and proper dietary intake * Start magnesium supplement (7) Hypophosphatemia: Phosphate level has improved since admission. * Levels will continue to improve with alcohol cessation and proper dietary intake (8) Neuropathy: Condition remains unchanged. Continue with gabapentin. ALLERGIES Allergies Allergy/AdvReac Type Severity Reaction Status Date / Time No Known Drug Allergies Allergy Verified 11/24/24 12:04 MEDICATIONS Ambulatory Orders Medication Instructions Recorded Confirmed cyclobenzaprine 10 mg tablet 10 mg PO TID PRN muscle spasm 11/24/24 11/24/24 gabapentin 300 mg capsule 300 mg PO BID 11/24/24 11/24/24 codeine 10 mg-guaifenesin 100 mg/5 5 ml PO Q6HR PRN Cough #120 mL 11/27/24 mL oral liquid folic acid 1 mg tablet 1 mg PO DAILY #30 tabs 11/27/24 guaifenesin 100 mg/5 mL oral liquid 200 mg (10 mL) PO Q4H PRN Cough 11/27/24 #473 mL hydroxyzine pamoate 25 mg capsule 25 mg PO QPM PRN Anxiety #30 caps 11/27/24 magnesium oxide 400 mg PO DAILY #30 caps 11/27/24 multivitamin with folic acid 400 1 tab PO DAILYWM #30 tabs 11/27/24 mcg tablet (Thera) potassium chloride 20 mEq 30 meq (1.5 x 20 mEq) PO DAILYWM 11/27/24 tablet,extended #60 tabs release(part/cryst) (Klor-Con M) thiamine mononitrate (vit B1) 100 100 mg PO DAILY #30 tabs 11/27/24 mg tablet Home Medications Other | Comments: No change -- continue gabapentin and cyclobenzaprine PHYSICAL EXAM AT DISCHARGE General Appearance: positive No acute distress and Alert Eyes Bilateral: positive Normal inspection, PERRL, EOMI, No lid inflammation, Conjunctivae nml and No scleral icterus ENT: positive ENT inspection nml and No signs of dehydration Neck: positive Nml inspection, No JVD and Trachea midline Respiratory: positive Chest non-tender (Lower ribcage is tender d/t coughing.), No respiratory distress and Breath sounds nml; negative Wheezes, Rales or Rhonchi Cardiovascular: positive Regular rate & rhythm, No murmur and No gallop Abdomen: positive Non-tender Back: positive Nml inspection Skin: positive Color nml, No rash, Warm and Dry Extremities: positive Non-tender, Full ROM, Nml appearance and No pedal edema Neurologic/Psychiatric: positive Oriented x3, CN's nml (2-12), Motor nml, Sensation nml and Mood/affect nml LABS 11/27/24 04:12 11/27/24 04:12 DIAGNOSTIC IMAGING Diagnostic Imaging Results: Final report reviewed Diagnostic Imaging Results Comments: CTA chest/thorax: FINDINGS: * Lungs and pleura:No dense airspace consolidation. Mild basal atelectasis. No pleural effusions. * Mediastinum, heart, and esophagus: No acute pulmonary embolism. * Mildly prominent distal esophagus. Heart size is at the upper lateral normal. * Chest wall and thyroid: Unremarkable * Upper abdomen: Suspected hepatic steatosis partially seen * Bones: No compressive appearing osseous abnormality. IMPRESSION: * No acute pulmonary embolism. * No dense airspace disease or pleural effusions. * Partially seen hepatic steatosis. CXR: FINDINGS: * Surgical changes and devices: None. * Lungs and pleura: No pleural effusions or pneumothorax. No consolidation. * Mediastinum: Mediastinal contours appear normal. Heart size is normal. * Bones and chest wall: No suspicious bony lesions. Overlying soft tissues appear unremarkable. IMPRESSION: * No acute cardiopulmonary process. SEPSIS Current Stage of Sepsis: Ruled out TIME SPENT Time Spent in Discharge (Minutes): 40 Discharge Plan Discharge Patient Disposition: Home, Self Care Condition: Stable Prescriptions: New guaifenesin 100 mg/5 mL Liquid 200 mg PO Q4H PRN (Reason: Cough) Qty: 473 0RF folic acid 1 mg Tablet 1 mg PO DAILY Qty: 30 0RF codeine-guaifenesin 10-100 mg/5 mL Liquid 5 ml PO Q6HR PRN (Reason: Cough) Qty: 120 0RF hydroxyzine pamoate 25 mg Capsule 25 mg PO QPM PRN (Reason: Anxiety) Qty: 30 0RF multivitamin with folic acid [Thera] 400 mcg Tablet 1 tab PO DAILYWM Qty: 30 0RF potassium chloride [Klor-Con M20] 20 mEq Tablet,Er Particles/Crystals 30 meq PO DAILYWM Qty: 60 0RF thiamine mononitrate (vit B1) 100 mg Tablet 100 mg PO DAILY Qty: 30 0RF magnesium oxide 400 mg magnesium capsule 400 mg PO DAILY Qty: 30 0RF Continued gabapentin 300 mg capsule 300 mg PO BID cyclobenzaprine 10 mg tablet 10 mg PO TID PRN (Reason: muscle spasm) Activity Restrictions: No Restrictions Diet: Regular Health Concerns: You came into the hospital with lots of problems with your electrolytes. We call this alcoholic ketoacidosis. On top of it I think you had a cold. You had abnormalities in your potassium your magnesium and your phosphorus. Some of these abnormalities could also be related to your nutritional state. On top of this I think you have had a bad cold which is also thrown you into a lot of fatigue with cough. You need to get your electrolytes checked again this would include potassium phosphate and magnesium in a week or so. It is okay for you to telehealth with your [facility] provider. Additionally I want you to follow up with the new recommendations made by nutrition. You need to eat several small meals every single day. I think that some of the weight gain that you are experiencing is related to your liver failing. When you came into the hospital you had evidence of elevated bilirubin. This is indicative of liver failure. Drinking alcohol causes liver failure. Liver failure causes you to have fluid in your abdomen. Fluid in your abdomen makes you look fat. You are not fat, you just have fluid in your abdomen. You need to stop drinking alcohol, otherwise you are going to wind up with liver failure which can be fatal. I am sending you home with prescriptions for potassium magnesium and vitamins. I am also sending you home with medicine for your cough and cold. I want you to rest drink lots of fluids and eat small meals. Print Language: Ukrainian Patient Instructions: Hypokalemia Dc, Hypomagnesemia Dc, Hyponatremia Dc Follow-up Care: PRISCILA MIRANDA MD [Primary Care Provider] -"
== END 2024-11-27 16:39 | disposition home or self-care (01) | DRG 641 ==
LOC: MS2 11:58 → ED 11:58 → MS2 21:49
PROVIDERS: ADMIT Physician Assistant Medical; ATTEND Family Medicine Sports Medicine
DX: J20.6 Acute bronchitis due to rhinovirus; E87.29 Other acidosis; E87.6 Hypokalemia; E83.42 Hypomagnesemia; E87.1 Hypo-osmolality and hyponatremia; G62.9 Polyneuropathy, unspecified; Z20.828 Contact with and (suspected) exposure to other viral communicable diseases; E83.39 Other disorders of phosphorus metabolism; F10.20 Alcohol dependence, uncomplicated; Z20.818 Contact with and (suspected) exposure to other bacterial communicable diseases; Z20.822 Contact with and (suspected) exposure to COVID-19; Z79.899 Other long term (current) drug therapy